=== PATIENT | female | born 1950 | race Caucasian/White ===

== ENCOUNTER 2019-06-20 09:44 | Inpatient (IN) ==
[2019-06-20] MEDS: 0.9 % Sodium Chloride 1,000 ML IVC SCH ×3 (10:21→18:51)
[2019-06-20] MEDS ORDERED: levoFLOXacin 750 MG/150 ML 750 MG/150 ML BAG IVPB ONE (10:41)
[2019-06-20] MEDS ORDERED: Piperacillin/Tazobactam 3.375 GM in Water for inj. (sterile) 20 ML IVP ONE (10:41)
[2019-06-20 10:43] LABS: Immature Granulocytes % 1.4 % (0-4); Lymphocytes % 5.7 %; Mean Corpuscular Hemoglobin 29.6 pg (28.0-33.3)
[2019-06-20 10:45] LABS: Basophils % 0.3 %; Eosinophils # 0.4 K/mcL (0.0-0.6); Eosinophils % 3.7 %; Hematocrit 48.4 % (35.3-44.9); Hemoglobin 15.3 g/dL (11.5-15.4); Immature Platelets 7.7 % (1.1-6.1); Lymphocytes # 0.7 K/mcL (0.6-4.6); Mean Corpuscular HGB Conc 31.6 g/dL (31.6-35.5); Mean Corpuscular Volume 93.6 fL (83.0-100.0); Monocytes # 0.6 K/mcL (0.0-1.3); Monocytes % 4.8 %; Neutrophils # 10.1 K/mcL (1.6-8.9); Nucleated Red Blood Cells 0.3 /100 WBC (0); Red Blood Count 5.17 M/mcL (3.82-4.97); Red Cell Distribution Width 18.6 % (11.5-14.5); Segmented Neutrophils % 84.1 %
[2019-06-20 10:51] LABS: INR 2.1; Prothrombin Time 23.8 Seconds (9.4-12.1)
[2019-06-20 10:54] LABS: Activated Partial Thrombo Time 44.4 Seconds (26.0-36.0)
[2019-06-20 11:11] LABS: Albumin 3.4 g/dL (3.5-5.7); Albumin/Globulin Ratio 1.4 (1.1-2.2); Bilirubin,Direct 2.5 mg/dL (0.0-0.2); Bilirubin,Indirect 1.2 mg/dL (0.0-1.2); Bilirubin,Total 3.7 mg/dL (0.3-1.0); Calcium 8.6 mg/dL (8.6-10.3); Globulin 2.4 g/dL (2.4-3.5); Magnesium 2.3 mg/dL (1.6-2.6); Phosphorous 6.1 mg/dL (2.7-4.5); Potassium 4.7 mEq/L (3.5-5.1); Total Protein 5.8 g/dL (6.4-8.9); Troponin I 0.53 ng/mL (< 0.04)
[2019-06-20 11:20] LABS: Platelet Count 54 K/mcL (140-400)
[2019-06-20 11:21] LABS: Platelet Estimate Decreased (Normal); Polychromasia 1+ (Not Present)
--- NOTE | 2019-06-20 11:26 | Emergency Department Note ---
Disposition Clinical Impression: ESRD (end stage renal disease) on dialysis, Elevated troponin, Thrombocytopenia [id number] kidney injury Qualifiers: Acute renal failure type: unspecified Chronic kidney disease stage: stage 5, not on chronic dialysis Qualified Code(s): N17.9 - Acute kidney failure, unspecified; N18.5 - Chronic kidney disease, stage 5 Anemia Qualifiers: Anemia type: unspecified type Qualified Code(s): D64.9 - Anemia, unspecified Diabetes mellitus Qualifiers: Diabetes mellitus type: type 2 Diabetes mellitus usp insulin use: unspecified usp insulin use status Diabetes mellitus complication status: with kidney complications Diabetes mellitus complication detail: with other kidney complication Qualified Code(s): E11.29 - Type 2 diabetes mellitus with other diabetic kidney complication Pneumonia Qualifiers: Pneumonia type: due to unspecified organism Laterality: left Lung location: upper lobe of lung Qualified Code(s): J18.1 - Lobar pneumonia, unspecified organism Disposition: Admitted As Inpatient Condition: Good Referrals: NONE,PCP [Primary Care Provider] - Forms: ED Satisfaction Letter Time of Disposition: 15:15 General Adult HPI - General Chief complaint: ED Weakness Stated complaint: weakness Time Seen by Provider: 06/20/19 09:50 Source: family, EMS Limitations: no limitations Nursing Notes Reviewed: Yes Vital Signs Reviewed: Yes - History of Present Illness HPI Narrative: Female Patient presenting to the emergency department by EMS with the daughter. Daughter states that she has been increasingly tired and weak over the past week. She does have a history of coronary artery disease a left [id number] amputation as well as end-stage renal disease that she is on dialysis for. She is a diabetic. Daughter states that she was being treated for pneumonia however she has taken the last dose of her antibiotics yesterday. She does report cough. States that she just not been eating and drinking very well. She also noted this morning whenever she got up to the patient's right foot was blue. Pain Scale: 0 - Related Data Home Medications Medication Instructions Recorded Confirmed Aspirin Enteric Coated [Aspirin EC] 81 mg PO DAILY 07/13/15 06/05/18 Clopidogrel [Plavix] 75 mg PO DAILY 07/13/15 06/05/18 Levothyroxine [Synthroid] 75 mcg PO QAM 07/13/15 06/05/18 Pentoxifylline [TRENtal] 400 mg PO BID 07/13/15 06/05/18 Tiotropium [Spiriva] 18 mcg IH DAILY 07/13/15 06/05/18 ALPRAZolam [Xanax 1 MG Tablet] 1 mg PO BID PRN 09/11/16 06/05/18 Atorvastatin Calcium [Lipitor] 20 mg PO HS 09/11/16 06/05/18 Docusate [Colace] 100 mg PO DAILY PRN 09/11/16 06/05/18 Gabapentin [Neurontin] 400 mg PO QPM 09/11/16 06/05/18 Gabapentin [Neurontin] 800 mg PO QAM 09/11/16 06/05/18 Sertraline [Zoloft] 100 mg PO DAILY 09/11/16 06/05/18 Sitagliptin Phos/Metformin HCl 1 each PO BID 09/11/16 06/05/18 [Janumet 50-1,000 mg Tablet] Previous Rx's Medication Instructions Recorded OxyCODONE/APAP 5/325 [Percocet 2 each PO Q6HR PRN #20 tablet 09/24/16 5/325 MG] Allergies Allergy/AdvReac Type Severity Reaction Status Date / Time gabapentin Allergy Seizure Verified 06/20/19 10:04 All systems ED: reviewed and negative except as stated. Review of Systems: As Per HPI Constitutional: Denies: fever, chills ENT ED: Reports: congestion Cardiovascular: Denies: syncope Respiratory: Reports: cough, dyspnea, sputum production Gastrointestinal: Denies: abdominal pain, nausea, vomiting, diarrhea Genitourinary: Reports: other (Patient does make urine.) Integumentary: Reports: other (Skin breakdown of the left buttocks). Denies: rash Past Medical History - Past Medical History Attestation: Yes The following information was validated with the patient. Source: patient Medical history: Reports: CHF, COPD, diabetes, myocardial infarction, renal disease, thyroid disease Surgical history: Reports: coronary bypass (CABG), orthopedic, other, vascular surgery (Status post left upper arm AV fistula) Psychiatric history: Reports: anxiety, depression [employer] history: Reports: non-contributory - Social History Smoking Status: Former smoker Smokeless Tobacco Status: No Alcohol use: Reports: none Drug use: Reports: none Physical Exam - General Limitations: no limitations General appearance: alert, other (Decreased mental status.) - Head Head exam: atraumatic, normocephalic, normal inspection - Eye Eye exam: Present: normal appearance, PERRL, EOMI - ENT ENT exam: normal exam, normal oropharynx, mucous membranes moist - Neck Neck exam: Present: normal inspection, full ROM, trachea midline - Chest Chest inspection: Present: normal inspection, symmetric chest wall rise - Respiratory Respiratory exam: Present: other (Coarse throughout.). Absent: respiratory distress, accessory muscle use - Cardiovascular Cardiovascular exam: Present: normal rhythm, tachycardia, normal heart sounds - Abdominal Exam Abdominal exam: Present: soft, Non-Tender. Absent: tenderness, distention, guarding, rebound, rigidity - Extremities Exam Extremities exam: Present: other (Right lower extremity blue from mid calf down. Cool to the touch. No palpable pulses. She does have a delayed capillary refill in her right thigh. They are edematous with pitting edema. Left lower extremity is amputated above the knee. ). Absent: tenderness - Neurological Exam Neurological exam: Present: alert, other (Confused. Does wake up to voice command.) - Skin Skin exam: Present: warm, dry, intact, normal color Course Course Narrative: Patient with increased cough and decreased mental status end-stage renal failure does do Saturday dialysis however has not had dialysis for the past Saturday or Saturday episode. Has had a decreased mental status. She is confused. Does arousable arouse to voice command weakly goes back to sleep. Has coarse lung sounds throughout. Pitting doughy edema to her right extremity with a blue foot. No pulses palpable. She is tachycardic. Chest x-ray is concerning for pneumonia of the left upper lobe. She does appear to be fluid overloaded however is mildly hypotensive. Family states that her blood pressure is very fluctuating. With a normal pressure for her is in the 70 systolic. - Reevaluation(s) Reevaluation #1: Currently cannot palpate a radial pulse. We will place a central line at this time and start the patient on vasopressors. I did discuss the risks and benefits of this with the daughter who is the power of corporate attorney and she expresses that she would like the patient to have a central line in the placed on vasopressors. We discussed that this could worsen her blood flow to her extremities and she is okay with that. She does however still states that she is DNR what appears to be Comfort Care rest. She does not wish to be intubated. She does not want CPR however she is requesting treatment a central line and IV vasopressors. Time: 13:00 - Consultations Consultation #1: I did speak to Dr Sharma. He recommended ABIs and Doppler of the patient's right lower extremity. We will order this at this time. He did not recommend anticoagulation at this time. Time: 11:45 Consultation #2: Dr sharma was made aware of the results of the ezra and doppler. He did recommend starting the patient on heparin at this time. We will start that. Time: 12:59 Vital Signs Temperature 98.9 F 06/20/19 09:58 Pulse Rate 121 06/20/19 09:58 Respiratory Rate 18 06/20/19 09:58 Blood Pressure 67/52 06/20/19 09:58 O2 Sat by Pulse Oximetry 92 06/20/19 09:58 Temperature 98.9 F 06/20/19 09:58 Pulse Rate 122 06/20/19 15:02 Respiratory Rate 18 06/20/19 15:02 Blood Pressure 72/51 06/20/19 15:02 O2 Sat by Pulse Oximetry 92 06/20/19 15:02 Oxygen Delivery Oxygen Delivery Nasal Cannula Procedures - Arterial Line Consent Obtained: verbal consent Time Out Performed: Yes Size (Gauge): 20 Technique Used: direct puncture technique Post-Procedure: line sutured into place, line taped into place, dry sterile dressing placed Patient Tolerated Procedure: well Complications: none Site: right - Central Line Placement Right IJ Central Line Inserted*: Yes Central Line Catheter Replacement*: Yes Central Line Insertion: emergent Consent Obtained: verbal consent, written consent Procedural Pause: verify patient name and date of , sunny and assess the site, assemble equipment and verify supplies, perform hand hygiene Patient Placed on Monitor/Pulse Ox: Yes During the Procedure: clinician is wearing sterile gloves, cap, mask,& gown during insertion, sterile field and sterile technique are maintained, patient's face is covered with drape or mask and wearing a cap, everyone in room is wearing a mask Central Line Prep: Chlorhexidine scrub Prep the Procedure Site: apply chloraprep to the skin using a back and forth scrubbing motion, apply chloraprep for 30 seconds (upper body), 1-2 min (femoral sites), allow prep to dry, drape the patient with a full body drape Local Anesthetic: lidocaine 1% Amount of anesthesia used (mL): 3 Ultrasound Used for Placement: Yes Central Line Lumen Inserted: triple Post Procedure: sutured in place, good blood return, all ports aspirated, fl ushed, capped, sterile dressing applied, guide wire removed and visualized, dressing is dated Post Procedure X-Ray: tip of catheter in good position, no pneumothorax seen Patient Tolerated Procedure: well Complications: none Name of Clinician Inserting Central Line: Chikis Lorenzo Clinician Assisting/Completing Checklist: Concepción Date: 06/20/19 Time: 14:40 Medical Decision Making - Medical Records Medical records reviewed: Yes I reviewed the patient's medical records. - Lab Data Lab results reviewed: Yes I reviewed the patient's lab results. Result diagrams: 06/20/19 10:31 06/20/19 10:31 Lab Results 06/20/19 06/20/19 06/20/19 Range/Units 10:31 10:31 10:31 WBC 12.0 H (4.3-11.1) K/mcL RBC 5.17 H (3.82-4.97) M/mcL Hgb 15.3 (11.5-15.4) g/dL Hct 48.4 H (35.3-44.9) % MCV 93.6 (83.0-100.0) fL MCH 29.6 (28.0-33.3) pg MCHC 31.6 (31.6-35.5) g/dL RDW 18.6 H (11.5-14.5) % Plt Count 54 L (140-400) K/mcL MPV 12.0 (9.4-12.4) fL Immature Gran % 1.4 (0-4) % Seg Neutrophils % 84.1 % Lymphocytes % 5.7 % Monocytes % 4.8 % Eosinophils % 3.7 % Basophils % 0.3 % Neutrophils # 10.1 H (1.6-8.9) K/mcL Lymphocytes # 0.7 (0.6-4.6) K/mcL Monocytes # 0.6 (0.0-1.3) K/mcL Eosinophils # 0.4 (0.0-0.6) K/mcL Basophils # 0.0 (0.0-0.2) K/mcL Nucleated RBCs/100 WBC 0.3 H (0) /100 WBC Platelet Estimate Decreased L (Normal) Immature Plt Fraction 7.7 H (1.1-6.1) % Polychromasia 1+ A (Not Present) PT 23.8 H (9.4-12.1) Seconds INR 2.1 APTT 44.4 H (26.0-36.0) Seconds Heparin Anti-Xa, Unfract (0.30-0.70) IU/mL Sodium 132 L (136-145) mEq/L Potassium 4.7 (3.5-5.1) mEq/L Chloride 92 L (98-107) mEq/L Carbon Dioxide 23 (23-29) mEq/L BUN 58 H (8-23) mg/dL Creatinine 6.63 H (0.60-1.20) mg/dL Est GFR ( Amer) 7 L (> 60) Est GFR (Non-Af Amer) 6 L (> 60) BUN/Creatinine Ratio 9 (6-26) Glucose 189 H (70-105) mg/dL Calculated Osmolality 295 (280-300) Lactic Acid (0.5-2.2) mmol/L Calcium 8.6 (8.6-10.3) mg/dL Phosphorus 6.1 H (2.7-4.5) mg/dL Magnesium 2.3 (1.6-2.6) mg/dL Total Bilirubin 3.7 H (0.3-1.0) mg/dL Direct Bilirubin 2.5 H (0.0-0.2) mg/dL Indirect Bilirubin 1.2 (0.0-1.2) mg/dL AST 136 H (13-39) Units/L ALT 114 H (7-52) Units/L Alkaline Phosphatase 115 H (34-104) Units/L Troponin I 0.53 H* (< 0.04) ng/mL Serum Total Protein 5.8 L (6.4-8.9) g/dL Albumin 3.4 L (3.5-5.7) g/dL Globulin 2.4 (2.4-3.5) g/dL Albumin/Globulin Ratio 1.4 (1.1-2.2) Urine Color (Yellow) Urine Clarity (Clear) Urine pH (5.0-8.0) pH Units Ur Specific [place] (1.010-1.025) Urine Protein (Neg-Trace) mg/dL Urine Glucose (UA) (Normal) mg/dL Urine Ketones (Negative) mg/dL Urine Blood (Negative) Urine Nitrite (Negative) Urine Bilirubin (Negative) Urine Urobilinogen (Normal) mg/dL Ur Leukocyte Esterase (Negative) Urine Microscopic RBC (0-3) per hpf Urine Microscopic WBC (0-3) per hpf Ur Squamous Epith Cells (None-Few) per lpf Urine Bacteria (None-Few) per hpf Ur Culture Indicated? (NO) Hep Bs Antigen (Nonreactive) Hep Bs Antibody (10.00 - ) mIU/mL 06/20/19 06/20/19 06/20/19 Range/Units 10:31 10:31 11:24 WBC (4.3-11.1) K/mcL RBC (3.82-4.97) M/mcL Hgb (11.5-15.4) g/dL Hct (35.3-44.9) % MCV (83.0-100.0) fL MCH (28.0-33.3) pg MCHC (31.6-35.5) g/dL RDW (11.5-14.5) % Plt Count (140-400) K/mcL MPV (9.4-12.4) fL Immature Gran % (0-4) % Seg Neutrophils % % Lymphocytes % % Monocytes % % Eosinophils % % Basophils % % Neutrophils # (1.6-8.9) K/mcL Lymphocytes # (0.6-4.6) K/mcL Monocytes # (0.0-1.3) K/mcL Eosinophils # (0.0-0.6) K/mcL Basophils # (0.0-0.2) K/mcL Nucleated RBCs/100 WBC (0) /100 WBC Platelet Estimate (Normal) Immature Plt Fraction (1.1-6.1) % Polychromasia (Not Present) PT (9.4-12.1) Seconds INR APTT (26.0-36.0) Seconds Heparin Anti-Xa, Unfract (0.30-0.70) IU/mL Sodium (136-145) mEq/L Potassium (3.5-5.1) mEq/L Chloride (98-107) mEq/L Carbon Dioxide (23-29) mEq/L BUN (8-23) mg/dL Creatinine (0.60-1.20) mg/dL Est GFR ( Amer) (> 60) Est GFR (Non-Af Amer) (> 60) BUN/Creatinine Ratio (6-26) Glucose (70-105) mg/dL Calculated Osmolality (280-300) Lactic Acid 1.9 (0.5-2.2) mmol/L Calcium (8.6-10.3) mg/dL Phosphorus (2.7-4.5) mg/dL Magnesium (1.6-2.6) mg/dL Total Bilirubin (0.3-1.0) mg/dL Direct Bilirubin (0.0-0.2) mg/dL Indirect Bilirubin (0.0-1.2) mg/dL AST (13-39) Units/L ALT (7-52) Units/L Alkaline Phosphatase (34-104) Units/L Troponin I (< 0.04) ng/mL Serum Total Protein (6.4-8.9) g/dL Albumin (3.5-5.7) g/dL Globulin (2.4-3.5) g/dL Albumin/Globulin Ratio (1.1-2.2) Urine Color Dark Yellow (Yellow) Urine Clarity Turbid A (Clear) Urine pH 5.0 (5.0-8.0) pH Units Ur Specific [place] 1.015 (1.010-1.025) Urine Protein 30 H (Neg-Trace) mg/dL Urine Glucose (UA) Normal (Normal) mg/dL Urine Ketones Trace H (Negative) mg/dL Urine Blood Large H (Negative) Urine Nitrite Negative (Negative) Urine Bilirubin Moderate H (Negative) Urine Urobilinogen Normal (Normal) mg/dL Ur Leukocyte Esterase Large H (Negative) Urine Microscopic RBC TNTC H (0-3) per hpf Urine Microscopic WBC TNTC H (0-3) per hpf Ur Squamous Epith Cells Many H (None-Few) per lpf Urine Bacteria Many H (None-Few) per hpf Ur Culture Indicated? YES A (NO) Hep Bs Antigen Nonreactive (Nonreactive) Hep Bs Antibody < 3.10 L (10.00 - ) mIU/mL 06/20/19 Range/Units 14:19 WBC (4.3-11.1) K/mcL RBC (3.82-4.97) M/mcL Hgb (11.5-15.4) g/dL Hct (35.3-44.9) % MCV (83.0-100.0) fL MCH (28.0-33.3) pg MCHC (31.6-35.5) g/dL RDW (11.5-14.5) % Plt Count (140-400) K/mcL MPV (9.4-12.4) fL Immature Gran % (0-4) % Seg Neutrophils % % Lymphocytes % % Monocytes % % Eosinophils % % Basophils % % Neutrophils # (1.6-8.9) K/mcL Lymphocytes # (0.6-4.6) K/mcL Monocytes # (0.0-1.3) K/mcL Eosinophils # (0.0-0.6) K/mcL Basophils # (0.0-0.2) K/mcL Nucleated RBCs/100 WBC (0) /100 WBC Platelet Estimate (Normal) Immature Plt Fraction (1.1-6.1) % Polychromasia (Not Present) PT (9.4-12.1) Seconds INR APTT (26.0-36.0) Seconds Heparin Anti-Xa, Unfract 0.00 L (0.30-0.70) IU/mL Sodium (136-145) mEq/L Potassium (3.5-5.1) mEq/L Chloride (98-107) mEq/L Carbon Dioxide (23-29) mEq/L BUN (8-23) mg/dL Creatinine (0.60-1.20) mg/dL Est GFR ( Amer) (> 60) Est GFR (Non-Af Amer) (> 60) BUN/Creatinine Ratio (6-26) Glucose (70-105) mg/dL Calculated Osmolality (280-300) Lactic Acid (0.5-2.2) mmol/L Calcium (8.6-10.3) mg/dL Phosphorus (2.7-4.5) mg/dL Magnesium (1.6-2.6) mg/dL Total Bilirubin (0.3-1.0) mg/dL Direct Bilirubin (0.0-0.2) mg/dL Indirect Bilirubin (0.0-1.2) mg/dL AST (13-39) Units/L ALT (7-52) Units/L Alkaline Phosphatase (34-104) Units/L Troponin I (< 0.04) ng/mL Serum Total Protein (6.4-8.9) g/dL Albumin (3.5-5.7) g/dL Globulin (2.4-3.5) g/dL Albumin/Globulin Ratio (1.1-2.2) Urine Color (Yellow) Urine Clarity (Clear) Urine pH (5.0-8.0) pH Units Ur Specific [place] (1.010-1.025) Urine Protein (Neg-Trace) mg/dL Urine Glucose (UA) (Normal) mg/dL Urine Ketones (Negative) mg/dL Urine Blood (Negative) Urine Nitrite (Negative) Urine Bilirubin (Negative) Urine Urobilinogen (Normal) mg/dL Ur Leukocyte Esterase (Negative) Urine Microscopic RBC (0-3) per hpf Urine Microscopic WBC (0-3) per hpf Ur Squamous Epith Cells (None-Few) per lpf Urine Bacteria (None-Few) per hpf Ur Culture Indicated? (NO) Hep Bs Antigen (Nonreactive) Hep Bs Antibody (10.00 - ) mIU/mL - Radiology Data Radiology results reviewed: Yes I reviewed the patient's radiology results. Chest X-Ray 06/20/19 10:07 IMPRESSION: 1. Worsening consolidation left upper lobe. An underlying mass in the left suprahilar region cannot be excluded. Recommend dedicated CT with contrast. 2. There is also worsening pleural effusions with mild interstitial edema suggestive of underlying congestive heart failure. D/ / Lor Mckoy MD / Lor Mckoy MD Interpreting Provider: Lor Mckoy MD - EKG Data EKG #1 EKG attestation: Yes I reviewed and interpreted this EKG. EKG results narrative: Sinus tachycardia at a rate of 122. MD interval is 88. QRS duration is 117. QT is 319. QTC is 455. No signs of acute ischemia. She does have some ST depression and T-wave inversion in lead V4 V5 and V6. Is also T-wave inversion in lead 1 and 2. These were all present on previous EKG dated 02/27/2019.
--- NOTE | 2019-06-20 11:27 | Emergency Department Note ---
Disposition Clinical Impression: ESRD (end stage renal disease) on dialysis, Elevated troponin, Thrombocytopenia [id number] kidney injury Qualifiers: Acute renal failure type: unspecified Chronic kidney disease stage: on chronic dialysis Qualified Code(s): N17.9 - Acute kidney failure, unspecified Anemia Qualifiers: Anemia type: unspecified type Qualified Code(s): D64.9 - Anemia, unspecified Diabetes mellitus Qualifiers: Diabetes mellitus type: type 2 Diabetes mellitus termite control service representative insulin use: with termite control service representative use Diabetes mellitus complication status: with kidney complications Diabetes mellitus complication detail: with chronic kidney disease Chronic kidney disease stage: on chronic dialysis Qualified Code(s): E11.22 - Type 2 diabetes mellitus with diabetic chronic kidney disease Pneumonia Qualifiers: Pneumonia type: due to unspecified organism Laterality: left Lung location: upper lobe of lung Qualified Code(s): J18.1 - Lobar pneumonia, unspecified organism Disposition: Admitted As Inpatient Condition: Good Time of Disposition: 19:48 General Adult HPI - General Chief complaint: ED Weakness Stated complaint: weakness Time Seen by Provider: 06/20/19 09:50 Source: family, EMS Limitations: no limitations Nursing Notes Reviewed: Yes Vital Signs Reviewed: Yes - History of Present Illness Pain Scale: 0 - Related Data Home Medications Medication Instructions Recorded Confirmed Aspirin Enteric Coated [Aspirin EC] 81 mg PO DAILY 07/13/15 06/05/18 Clopidogrel [Plavix] 75 mg PO DAILY 07/13/15 06/05/18 Levothyroxine [Synthroid] 75 mcg PO QAM 07/13/15 06/05/18 Pentoxifylline [TRENtal] 400 mg PO BID 07/13/15 06/05/18 Tiotropium [Spiriva] 18 mcg IH DAILY 07/13/15 06/05/18 ALPRAZolam [Xanax 1 MG Tablet] 1 mg PO BID PRN 09/11/16 06/05/18 Atorvastatin Calcium [Lipitor] 20 mg PO HS 09/11/16 06/05/18 Docusate [Colace] 100 mg PO DAILY PRN 09/11/16 06/05/18 Gabapentin [Neurontin] 400 mg PO QPM 09/11/16 06/05/18 Gabapentin [Neurontin] 800 mg PO QAM 09/11/16 06/05/18 Sertraline [Zoloft] 100 mg PO DAILY 09/11/16 06/05/18 Sitagliptin Phos/Metformin HCl 1 each PO BID 09/11/16 06/05/18 [Janumet 50-1,000 mg Tablet] Previous Rx's Medication Instructions Recorded OxyCODONE/APAP 5/325 [Percocet 2 each PO Q6HR PRN #20 tablet 09/24/16 5/325 MG] Allergies Allergy/AdvReac Type Severity Reaction Status Date / Time gabapentin Allergy Seizure Verified 06/20/19 10:04 Past Medical History - Past Medical History Medical history: Reports: CHF, COPD, diabetes, myocardial infarction, renal disease, thyroid disease Surgical history: Reports: coronary bypass (CABG), orthopedic, other, vascular surgery (Status post left upper arm AV fistula) Psychiatric history: Reports: anxiety, depression 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 - Social History Smoking Status: Former smoker Smokeless Tobacco Status: No Alcohol use: Reports: none Drug use: Reports: none Physical Exam - General Limitations: no limitations General appearance: alert Course Vital Signs Temperature 98.9 F 06/20/19 09:58 Pulse Rate 121 06/20/19 09:58 Respiratory Rate 18 06/20/19 09:58 Blood Pressure 67/52 06/20/19 09:58 O2 Sat by Pulse Oximetry 92 06/20/19 09:58 Temperature 97.7 F 06/20/19 19:00 Pulse Rate 136 06/20/19 19:00 Respiratory Rate 24 06/20/19 19:00 Blood Pressure 75/61 06/20/19 19:00 O2 Sat by Pulse Oximetry 89 06/20/19 19:00 Oxygen Delivery Oxygen Delivery Nasal Cannula Medical Decision Making - [facility] Narrative Medical decision making narrative: Chest X-Ray 06/20/19 10:07 IMPRESSION: 1. Worsening consolidation left upper lobe. An underlying mass in the left suprahilar region cannot be excluded. Recommend dedicated CT with contrast. 2. There is also worsening pleural effusions with mild interstitial edema suggestive of underlying congestive heart failure. D/ / Lor Mckoy MD / Lor Mkcoy MD Interpreting Provider: Lor Mckoy MD 1130 hrs.: Spoke with vascular they want a vascular ultrasound on the right leg. We started her on fluids but she is fluid overloaded's I do not want to give her the full amount for sepsis protocol. Her blood pressure according to family is always somewhere around 70 and she runs anywhere from 60-68 here systolic. Anabolic since been started. Waiting on study of her right lower extremity and speak with vascular she will need admission. Reviewed patient's chest x-ray from back in February and she still had the suspicious area on her chest x-ray in the left suprahilar region. I do not know that a CT is been done I have not seen that yet so that will probably be need to be done in the hospital. 1210 hrs.: fork lift technician his reviewed the ultrasound they could not find any arterial pulsations throughout the leg. No signs of DVT on this limited study. Spoke with vascular patient is not having any pain in the area and so no surgery is planned. No heparin at this time. Patient's case was discussed with hospitalist. For admission. Family states patient is a DNR CC they are okay with her receiving treatment but no heroic treatments, no intubation, no CPR and they prefer no surgery at this time. 1420 hrs.: Hospitalist requested a central line and art line, family agrees to the management. I reviewed the residents documentation and agree with the residents assessment and plan of care. I have personally had face to face time with the patient. (Brief History, Brief Exam, and MDM) I personally supervised and was present for the desouza/critical portions of the following procedures completed by the resident: Central line was placed under ultrasound by Dr. Lorenzo under my supervision. Line is been visually imaged with x-ray and is ready for use. . I reviewed the residents documentation and agree with the residents assessment and plan of care. I have personally had face to face time with the patient. (Brief History, Brief Exam, and MDM) I personally supervised and was present for the desouza/critical portions of the following procedures completed by the resident: Arterial line was placed in her right radial artery by Dr. Hyman under my supervision. This was done to request hospitalist due to hypertension. Successful placement was done. - Lab Data Result diagrams: 06/20/19 10:31 06/20/19 10:31 Lab Results 06/20/19 06/20/19 06/20/19 Range/Units 09:50 10:31 10:31 WBC 12.0 H (4.3-11.1) K/mcL RBC 5.17 H (3.82-4.97) M/mcL Hgb 15.3 (11.5-15.4) g/dL Hct 48.4 H (35.3-44.9) % MCV 93.6 (83.0-100.0) fL MCH 29.6 (28.0-33.3) pg MCHC 31.6 (31.6-35.5) g/dL RDW 18.6 H (11.5-14.5) % Plt Count 54 L (140-400) K/mcL MPV 12.0 (9.4-12.4) fL Immature Gran % 1.4 (0-4) % Seg Neutrophils % 84.1 % Lymphocytes % 5.7 % Monocytes % 4.8 % Eosinophils % 3.7 % Basophils % 0.3 % Neutrophils # 10.1 H (1.6-8.9) K/mcL Lymphocytes # 0.7 (0.6-4.6) K/mcL Monocytes # 0.6 (0.0-1.3) K/mcL Eosinophils # 0.4 (0.0-0.6) K/mcL Basophils # 0.0 (0.0-0.2) K/mcL Nucleated RBCs/100 WBC 0.3 H (0) /100 WBC Platelet Estimate Decreased L (Normal) Immature Plt Fraction 7.7 H (1.1-6.1) % Polychromasia 1+ A (Not Present) PT 23.8 H (9.4-12.1) Seconds INR 2.1 APTT 44.4 H (26.0-36.0) Seconds Heparin Anti-Xa, Unfract (0.30-0.70) IU/mL Sodium (136-145) mEq/L Potassium (3.5-5.1) mEq/L Chloride (98-107) mEq/L Carbon Dioxide (23-29) mEq/L BUN (8-23) mg/dL Creatinine (0.60-1.20) mg/dL Est GFR ( Amer) (> 60) Est GFR (Non-Af Amer) (> 60) BUN/Creatinine Ratio (6-26) Glucose (70-105) mg/dL POC Glucose 142 H (70-99) mg/dL Calculated Osmolality (280-300) Lactic Acid (0.5-2.2) mmol/L Calcium (8.6-10.3) mg/dL Phosphorus (2.7-4.5) mg/dL Magnesium (1.6-2.6) mg/dL Total Bilirubin (0.3-1.0) mg/dL Direct Bilirubin (0.0-0.2) mg/dL Indirect Bilirubin (0.0-1.2) mg/dL AST (13-39) Units/L ALT (7-52) Units/L Alkaline Phosphatase (34-104) Units/L Troponin I (< 0.04) ng/mL Serum Total Protein (6.4-8.9) g/dL Albumin (3.5-5.7) g/dL Globulin (2.4-3.5) g/dL Albumin/Globulin Ratio (1.1-2.2) Urine Color (Yellow) Urine Clarity (Clear) Urine pH (5.0-8.0) pH Units Ur Specific Clune (1.010-1.025) Urine Protein (Neg-Trace) mg/dL Urine Glucose (UA) (Normal) mg/dL Urine Ketones (Negative) mg/dL Urine Blood (Negative) Urine Nitrite (Negative) Urine Bilirubin (Negative) Urine Urobilinogen (Normal) mg/dL Ur Leukocyte Esterase (Negative) Urine Microscopic RBC (0-3) per hpf Urine Microscopic WBC (0-3) per hpf Ur Squamous Epith Cells (None-Few) per lpf Urine Bacteria (None-Few) per hpf Ur Culture Indicated? (NO) Hep Bs Antigen (Nonreactive) Hep Bs Antibody (10.00 - ) mIU/mL Specimen Rejected 06/20/19 06/20/19 06/20/19 Range/Units 10:31 10:31 10:31 WBC (4.3-11.1) K/mcL RBC (3.82-4.97) M/mcL Hgb (11.5-15.4) g/dL Hct (35.3-44.9) % MCV (83.0-100.0) fL MCH (28.0-33.3) pg MCHC (31.6-35.5) g/dL RDW (11.5-14.5) % Plt Count (140-400) K/mcL MPV (9.4-12.4) fL Immature Gran % (0-4) % Seg Neutrophils % % Lymphocytes % % Monocytes % % Eosinophils % % Basophils % % Neutrophils # (1.6-8.9) K/mcL Lymphocytes # (0.6-4.6) K/mcL Monocytes # (0.0-1.3) K/mcL Eosinophils # (0.0-0.6) K/mcL Basophils # (0.0-0.2) K/mcL Nucleated RBCs/100 WBC (0) /100 WBC Platelet Estimate (Normal) Immature Plt Fraction (1.1-6.1) % Polychromasia (Not Present) PT (9.4-12.1) Seconds INR APTT (26.0-36.0) Seconds Heparin Anti-Xa, Unfract (0.30-0.70) IU/mL Sodium 132 L (136-145) mEq/L Potassium 4.7 (3.5-5.1) mEq/L Chloride 92 L (98-107) mEq/L Carbon Dioxide 23 (23-29) mEq/L BUN 58 H (8-23) mg/dL Creatinine 6.63 H (0.60-1.20) mg/dL Est GFR ( Amer) 7 L (> 60) Est GFR (Non-Af Amer) 6 L (> 60) BUN/Creatinine Ratio 9 (6-26) Glucose 189 H (70-105) mg/dL POC Glucose (70-99) mg/dL Calculated Osmolality 295 (280-300) Lactic Acid 1.9 (0.5-2.2) mmol/L Calcium 8.6 (8.6-10.3) mg/dL Phosphorus 6.1 H (2.7-4.5) mg/dL Magnesium 2.3 (1.6-2.6) mg/dL Total Bilirubin 3.7 H (0.3-1.0) mg/dL Direct Bilirubin 2.5 H (0.0-0.2) mg/dL Indirect Bilirubin 1.2 (0.0-1.2) mg/dL AST 136 H (13-39) Units/L ALT 114 H (7-52) Units/L Alkaline Phosphatase 115 H (34-104) Units/L Troponin I 0.53 H* (< 0.04) ng/mL Serum Total Protein 5.8 L (6.4-8.9) g/dL Albumin 3.4 L (3.5-5.7) g/dL Globulin 2.4 (2.4-3.5) g/dL Albumin/Globulin Ratio 1.4 (1.1-2.2) Urine Color (Yellow) Urine Clarity (Clear) Urine pH (5.0-8.0) pH Units Ur Specific Clune (1.010-1.025) Urine Protein (Neg-Trace) mg/dL Urine Glucose (UA) (Normal) mg/dL Urine Ketones (Negative) mg/dL Urine Blood (Negative) Urine Nitrite (Negative) Urine Bilirubin (Negative) Urine Urobilinogen (Normal) mg/dL Ur Leukocyte Esterase (Negative) Urine Microscopic RBC (0-3) per hpf Urine Microscopic WBC (0-3) per hpf Ur Squamous Epith Cells (None-Few) per lpf Urine Bacteria (None-Few) per hpf Ur Culture Indicated? (NO) Hep Bs Antigen Nonreactive (Nonreactive) Hep Bs Antibody < 3.10 L (10.00 - ) mIU/mL Specimen Rejected 06/20/19 06/20/19 06/20/19 Range/Units 11:24 14:19 15:20 WBC (4.3-11.1) K/mcL RBC (3.82-4.97) M/mcL Hgb (11.5-15.4) g/dL Hct (35.3-44.9) % MCV (83.0-100.0) fL MCH (28.0-33.3) pg MCHC (31.6-35.5) g/dL RDW (11.5-14.5) % Plt Count (140-400) K/mcL MPV (9.4-12.4) fL Immature Gran % (0-4) % Seg Neutrophils % % Lymphocytes % % Monocytes % % Eosinophils % % Basophils % % Neutrophils # (1.6-8.9) K/mcL Lymphocytes # (0.6-4.6) K/mcL Monocytes # (0.0-1.3) K/mcL Eosinophils # (0.0-0.6) K/mcL Basophils # (0.0-0.2) K/mcL Nucleated RBCs/100 WBC (0) /100 WBC Platelet Estimate (Normal) Immature Plt Fraction (1.1-6.1) % Polychromasia (Not Present) PT (9.4-12.1) Seconds INR APTT (26.0-36.0) Seconds Heparin Anti-Xa, Unfract 0.00 L (0.30-0.70) IU/mL Sodium (136-145) mEq/L Potassium (3.5-5.1) mEq/L Chloride (98-107) mEq/L Carbon Dioxide (23-29) mEq/L BUN (8-23) mg/dL Creatinine (0.60-1.20) mg/dL Est GFR ( Amer) (> 60) Est GFR (Non-Af Amer) (> 60) BUN/Creatinine Ratio (6-26) Glucose (70-105) mg/dL POC Glucose (70-99) mg/dL Calculated Osmolality (280-300) Lactic Acid (0.5-2.2) mmol/L Calcium (8.6-10.3) mg/dL Phosphorus (2.7-4.5) mg/dL Magnesium (1.6-2.6) mg/dL Total Bilirubin (0.3-1.0) mg/dL Direct Bilirubin (0.0-0.2) mg/dL Indirect Bilirubin (0.0-1.2) mg/dL AST (13-39) Units/L ALT (7-52) Units/L Alkaline Phosphatase (34-104) Units/L Troponin I 0.58 H* (< 0.04) ng/mL Serum Total Protein (6.4-8.9) g/dL Albumin (3.5-5.7) g/dL Globulin (2.4-3.5) g/dL Albumin/Globulin Ratio (1.1-2.2) Urine Color Dark Yellow (Yellow) Urine Clarity Turbid A (Clear) Urine pH 5.0 (5.0-8.0) pH Units Ur Specific Clune 1.015 (1.010-1.025) Urine Protein 30 H (Neg-Trace) mg/dL Urine Glucose (UA) Normal (Normal) mg/dL Urine Ketones Trace H (Negative) mg/dL Urine Blood Large H (Negative) Urine Nitrite Negative (Negative) Urine Bilirubin Moderate H (Negative) Urine Urobilinogen Normal (Normal) mg/dL Ur Leukocyte Esterase Large H (Negative) Urine Microscopic RBC TNTC H (0-3) per hpf Urine Microscopic WBC TNTC H (0-3) per hpf Ur Squamous Epith Cells Many H (None-Few) per lpf Urine Bacteria Many H (None-Few) per hpf Ur Culture Indicated? YES A (NO) Hep Bs Antigen (Nonreactive) Hep Bs Antibody (10.00 - ) mIU/mL Specimen Rejected 06/20/19 Range/Units 15:38 WBC (4.3-11.1) K/mcL RBC (3.82-4.97) M/mcL Hgb (11.5-15.4) g/dL Hct (35.3-44.9) % MCV (83.0-100.0) fL MCH (28.0-33.3) pg MCHC (31.6-35.5) g/dL RDW (11.5-14.5) % Plt Count (140-400) K/mcL MPV (9.4-12.4) fL Immature Gran % (0-4) % Seg Neutrophils % % Lymphocytes % % Monocytes % % Eosinophils % % Basophils % % Neutrophils # (1.6-8.9) K/mcL Lymphocytes # (0.6-4.6) K/mcL Monocytes # (0.0-1.3) K/mcL Eosinophils # (0.0-0.6) K/mcL Basophils # (0.0-0.2) K/mcL Nucleated RBCs/100 WBC (0) /100 WBC Platelet Estimate (Normal) Immature Plt Fraction (1.1-6.1) % Polychromasia (Not Present) PT (9.4-12.1) Seconds INR APTT (26.0-36.0) Seconds Heparin Anti-Xa, Unfract (0.30-0.70) IU/mL Sodium (136-145) mEq/L Potassium (3.5-5.1) mEq/L Chloride (98-107) mEq/L Carbon Dioxide (23-29) mEq/L BUN (8-23) mg/dL Creatinine (0.60-1.20) mg/dL Est GFR ( Amer) (> 60) Est GFR (Non-Af Amer) (> 60) BUN/Creatinine Ratio (6-26) Glucose (70-105) mg/dL POC Glucose (70-99) mg/dL Calculated Osmolality (280-300) Lactic Acid (0.5-2.2) mmol/L Calcium (8.6-10.3) mg/dL Phosphorus (2.7-4.5) mg/dL Magnesium (1.6-2.6) mg/dL Total Bilirubin (0.3-1.0) mg/dL Direct Bilirubin (0.0-0.2) mg/dL Indirect Bilirubin (0.0-1.2) mg/dL AST (13-39) Units/L ALT (7-52) Units/L Alkaline Phosphatase (34-104) Units/L Troponin I (< 0.04) ng/mL Serum Total Protein (6.4-8.9) g/dL Albumin (3.5-5.7) g/dL Globulin (2.4-3.5) g/dL Albumin/Globulin Ratio (1.1-2.2) Urine Color (Yellow) Urine Clarity (Clear) Urine pH (5.0-8.0) pH Units Ur Specific Clune (1.010-1.025) Urine Protein (Neg-Trace) mg/dL Urine Glucose (UA) (Normal) mg/dL Urine Ketones (Negative) mg/dL Urine Blood (Negative) Urine Nitrite (Negative) Urine Bilirubin (Negative) Urine Urobilinogen (Normal) mg/dL Ur Leukocyte Esterase (Negative) Urine Microscopic RBC (0-3) per hpf Urine Microscopic WBC (0-3) per hpf Ur Squamous Epith Cells (None-Few) per lpf Urine Bacteria (None-Few) per hpf Ur Culture Indicated? (NO) Hep Bs Antigen (Nonreactive) Hep Bs Antibody (10.00 - ) mIU/mL Specimen Rejected Hemolyzed Attestation Statement - Attestation Attestation: This documentation is done with the assistance of Dragon dictation. Despite efforts made to ensure accuracy, there may be inaccuracies in media marketing director or spelling and typographical errors. I examined this patient and my medical decision-making was reviewed with the Resident Physician. I agree with the documented findings, disposition and treatment plan as described except to the extent set forth below. Patient was seen and evaluated by Dr. Lorenzo, I agree with their evaluation and management plan, I supervised care the patient's stay. Patient presents today from home by EMS. Patient is supposed be doing dialysis but has missed dialysis since Kevin. Daughter states she has not been eating or drinking well, says she has been too weak to go to dialysis. She also has noticed that her right foot is been getting, dusky and purple looking. It is also cold. Patient does not really have any complaints except she says she does not feel well. Patient does have more sedation, but will awaken talk to here. We will order a workup including vascular and septic. I reviewed the residents documentation and agree with the residents assessment and plan of care. I have personally had face to face time with the patient. (Brief History, Brief Exam, and MDM) I personally supervised and was present for the desouza/critical portions of the following procedures completed by the resident: EKG was interpreted by the resident under my supervision, I agree with their interpretation.
[2019-06-20 11:38] LABS: Bilirubin,Urine Moderate (Negative); Blood,Urine Large (Negative); Clarity,Urine Turbid (Clear); Color,Urine Dark Yellow (Yellow); Glucose,Urine (UA) Normal (Normal); Ketones,Urine Trace mg/dL (Negative); Leukocyte Esterase,Urine Large (Negative); Nitrite,Urine Negative (Negative); Protein,Urine 30 mg/dL (Neg-Trace); Specific Gravity,Urine 1.015 (1.010-1.025); Urobilinogen,Urine Normal (Normal)
[2019-06-20 11:40] LABS: Bacteria,Urine Many per hpf (None-Few); Squamous Epithelial Cell,Urine Many per lpf (None-Few); WBC,Urine TNTC per hpf (0-3)
[2019-06-20 11:49] LABS: RBC,Urine TNTC per hpf (0-3)
[2019-06-20 12:11] LABS: Hepatitis B Surface Antibody < 3.10 mIU/mL
[2019-06-20 12:22] LABS: Hepatitis B Surface Antigen Nonreactive (Nonreactive)
[2019-06-20] MEDS ORDERED: 0.9 % Sodium Chloride 1,000 ML ONE (12:57)
[2019-06-20] MEDS ORDERED: Albumin 25% 25gram/100mL 25 GM/100 ML IV.SOLN IVPB PRN (13:34)
[2019-06-20] MEDS ORDERED: 0.9 % Sodium Chloride 250 ML IVC PRN (13:34)
[2019-06-20] MEDS ORDERED: *HR* Heparin 5,000 UNIT/ML VIAL IVP ONE (13:36)
[2019-06-20] MEDS ORDERED: *HR* Heparin 5,000 UNIT/ML VIAL IVP PRN (13:36)
[2019-06-20] MEDS ORDERED: 0.9 % Sodium Chloride 1,000 ML PRIME SCH (13:45)
[2019-06-20] MEDS ORDERED: *HR* HYDROcodone/Acet 5/325 mg TABLET PO PRN (14:54)
[2019-06-20] MEDS ORDERED: Naloxone 0.4 MG/ML INJ IVP PRN (14:54)
[2019-06-20] MEDS: Norepinephrine 4 MG in D5% in Water 250 ML IVC SCH ×2 (14:54→20:30)
[2019-06-20] MEDS: Heparin 25,000 UNIT/250 ML D5W 25,000 UNIT/250 ML IV.SOLN IVC SCH (15:09)
--- NOTE | 2019-06-20 15:24 | Internal Med History&Physical ---
Date of Encounter: 06/20/19 Time of Encounter: 15:22 Internal Medicine - H&P: HPI Chief complaint: Feeling weak Admitted From: Home Plans for Post Hospital Care: Transfer Direct Sales Consultant Care History of present illness: Ms. Reed is a 69 year old female with past medical history significant for end-stage renal disease on dialysis, hypertension, diabetes, congestive heart failure, myocardial infarction status post coronary artery bypass graft in 2018, hyperlipidemia, coronary artery disease, and COPD, presents to the emergency department with complaint of feeling weak for past 3 days. Patient reports that went to her dialysis center on Saturday. After that she was having weak for posterior disease. The patient's daughter, patient appears to be mild confusion. Patient did not go to her dialysis on Saturday and Saturday. Patient reports that she has been getting increasingly tired and fatigued for about 3 days. Patient also reports she had issue with circulation in her extremity. Patient had left-sided below-knee amputation done for peripheral arterial disease. Patient's daughter informed that she noticed that her right foot was getting discolored for past couple days. This morning patient's daughter saw that her right foot turn purple that time patient brought to the ER by the patient's daughter. Denies any pain in her right foot. Patient reports cough. Pt reports that she was admitted here 2 months back and was diagnosed with pneumonia. Patient reports of cough. Patient denies any chest pain. Patient denies any palpitation. Upon presentation to urgent care on initial blood work patient had a leukocytosis. Patient has had thrombocytopenia. Patient had hyponatremia and Cr of 6. Pt had elevated troponin. Past Med Surg Social Fam HX - Past Medical History Medical history: CHF, COPD, coronary artery disease, diabetes, hyperlipidemia, myocardial infarction, peripheral artery disease, renal disease, thyroid disease Additional medical history: Leg and foot surgery, amputation Left leg, MRSA on chest, Psychiatric history: anxiety, depression - Past Surgical History Surgical History: coronary bypass (CABG), orthopedic, other, vascular surgery (Status post left upper arm AV fistula) Additional surgical history: left AKA, right toe amputation - Social History Smoking Status: Former smoker Smokeless Tobacco Status: No Alcohol use: none Drug use: none - Family History Father Living Status: Hx Family Cancer: Yes (prostate, colon) Mother Adopted: No Hx Family Endocrine Disorder: Yes (Diabetes) Brother Hx Family Endocrine Disorder: Yes (Diabetes) Daughter Hx Family Neurologic Disorders: Yes (Aneurysm) Internal Medicine - H&P: Meds Aspirin Enteric Coated [Aspirin EC] 81 mg PO DAILY 07/13/15 [History] Clopidogrel [Plavix] 75 mg PO DAILY 07/13/15 [History] Levothyroxine [Synthroid] 75 mcg PO QAM 07/13/15 [History] Pentoxifylline [TRENtal] 400 mg PO BID 07/13/15 [History] Tiotropium [Spiriva] 18 mcg IH DAILY 07/13/15 [History] ALPRAZolam [Xanax 1 MG Tablet] 1 mg PO BID PRN 09/11/16 [History] Atorvastatin Calcium [Lipitor] 20 mg PO HS 09/11/16 [History] Docusate [Colace] 100 mg PO DAILY PRN 09/11/16 [History] Gabapentin [Neurontin] 400 mg PO QPM 09/11/16 [History] Gabapentin [Neurontin] 800 mg PO QAM 09/11/16 [History] Sertraline [Zoloft] 100 mg PO DAILY 09/11/16 [History] Sitagliptin Phos/Metformin HCl [Janumet 50-1,000 mg Tablet] 1 each PO BID 09/11/16 [History] OxyCODONE/APAP 5/325 [Percocet 5/325 MG] 2 each PO Q6HR PRN #20 tablet 09/24/16 [Rx] Allergy/AdvReac Type Severity Reaction Status Date / Time gabapentin Allergy Seizure Verified 06/20/19 10:04 All Systems PM: A 10-system review of systems was performed and is negative for pertinent findings except as documented above in the HPI. - Constitutional Vitals: Temp Pulse Resp BP Pulse Ox 98.9 F 122 18 72/51 92 06/20/19 09:58 06/20/19 15:02 06/20/19 15:02 06/20/19 15:02 06/20/19 15:02 General appearance: Present: cooperative, A&O X 3 Exam: General: A & O 3, In no acute distress HENNT: PERRLA. Head atraumatic and makes supple CVS S1 and S2 regular, no murmur RS: Coarse breath sound bilaterally. Left-sided rhonchi. Abdomen: Soft and nontender. Bowel sounds normal 4 Extremities: above-knee amputation on the left extremity. Right foot - on inspection appear purple. edematous, no tenderness. Pulses are not palpable Neurology: Alert and oriented.. Does wake up to command. Internal Med - H&P Results - Labs CBC & Chem 7: 06/20/19 10:31 06/20/19 10:31 Labs: Short CBC 06/20/19 Range/Units 10:31 WBC 12.0 H (4.3-11.1) K/mcL Hgb 15.3 (11.5-15.4) g/dL Hct 48.4 H (35.3-44.9) % Plt Count 54 L (140-400) K/mcL Neutrophils # 10.1 H (1.6-8.9) K/mcL BMP 06/20/19 10:31 Sodium 132 L Potassium 4.7 Chloride 92 L Carbon Dioxide 23 BUN 58 H Creatinine 6.63 H Glucose 189 H Calcium 8.6 Cardiac Enzymes 06/20/19 Range/Units 10:31 Troponin I 0.53 H* (< 0.04) ng/mL Liver Function 06/20/19 Range/Units 10:31 Total Bilirubin 3.7 H (0.3-1.0) mg/dL Direct Bilirubin 2.5 H (0.0-0.2) mg/dL AST 136 H (13-39) Units/L ALT 114 H (7-52) Units/L Alkaline Phosphatase 115 H (34-104) Units/L Albumin 3.4 L (3.5-5.7) g/dL Urine 06/20/19 Range/Units 11:24 Urine Color Dark Yellow (Yellow) Urine Clarity Turbid A (Clear) Urine pH 5.0 (5.0-8.0) pH Units Ur Specific [place] 1.015 (1.010-1.025) Urine Protein 30 H (Neg-Trace) mg/dL Urine Glucose (UA) Normal (Normal) mg/dL - Impressions ITS Impressions Chest X-Ray 06/20/19 10:07 IMPRESSION: 1. Worsening consolidation left upper lobe. An underlying mass in the left suprahilar region cannot be excluded. Recommend dedicated CT with contrast. 2. There are also worsening pleural effusions with mild interstitial edema suggestive of underlying congestive heart failure. D/ / 06/20/2019 11:30:13 Lor Mckoy MD / ashwini Interpreting Provider: oLr Mckoy MD Chest X-Ray 06/20/19 14:10 IMPRESSION: Central line tip in the distal SVC with no pneumothorax. Stable left upper lobe consolidation with bibasilar opacification and effusion. D/ / Thaddeus Montanez MD / Thaddeus Montanez MD Interpreting Provider: Thaddeus Montanez MD - Assessment and Plan (1) Septic shock Current Visit: Yes Status: Acute Assessment and plan: Pt presented to the emergency department for feeling fatigued and tired. Upon initial presentation patient had a leukocytosis. Chest x-ray showed Stable left upper lobe consolidation with bibasilar opacification and effusion. Patient was given 1 dose of vancomycin, 1 dose of levofloxacin, and 1 dose of Zosyn in the emergency room. Patient's blood pressure was 60/30. Patient was started on pressure trip with Levophed. Central line was placed for continuous monitoring. She will be admitted to ICU for further management, pressure drip, and broad spectrum antibiotics. Septic shock protocol has been activated. Sputum culture and blood culture ordered. Urine Legionella and strep antigen ordered. Lactate level ordered. We will continue to monitor. (2) Pneumonia Current Visit: Yes Status: Acute Assessment and plan: Mangement as above. Qualifiers: Pneumonia type: due to unspecified organism Laterality: left Lung locati on: upper lobe of lung Qualified Code(s): J18.1 - Lobar pneumonia, unspecified organism (3) Thrombosis of artery of right lower extremity Current Visit: Yes Status: Acute Assessment and plan: Present to the emergency department with complaint of discoloration of the right foot. Patient reports it has been going on for past 3 days. This morning patient's daughter noticed that her foot was purple. Foot is also swollen. Patient denied any pain. On exam right foot. were cold, nontender, and edematous. Vascular surgery is on consult. Recommended to start heparin. Heparin drip was started in ER. We will monitor heparin drip drip protocol. Patient is not a candidate for TPA for muscular surgery. Muscular surgery was contacted by ED and he recommended OSCAR and Doppler. (4) CHF exacerbation Current Visit: No Status: Acute Assessment and plan: Patient has a history of diastolic and systolic heart failure. Patient is status post coronary artery bypass graft in 2018. Chest x-ray showed pulmonary vascular congestion. We will continue to monitor. I's and O's. Daily weight. Will hold diuretics for now for the concern of septic shock. Qualifiers: Heart failure type: diastolic Qualified Code(s): I50.33 - Acute on chronic diastolic (congestive) heart failure (5) [id number] kidney injury Current Visit: Yes Status: Acute Assessment and plan: History of end-stage renal disease. Patient missed 2 cycles of dialysis. Creatinine of 6 today. Nephrology on consul today. Plan is to do dialysis today. Qualifiers: Acute renal failure type: unspecified Chronic kidney disease stage: on chronic dialysis Qualified Code(s): N17.9 - Acute kidney failure, unspecified; N18.9 - Chronic kidney disease, unspecified; Z99.2 - Dependence on renal dialysis (6) Elevated troponin Current Visit: Yes Status: Acute Assessment and plan: Patient has a history of coronary artery disease status post coronary artery bypass graft in 2019. Troponin is elevated at 0.58. We will continue to trend troponin. We will consider cardiology consult if troponin is still trending up. Patient is on heparin drip due to concern off right-sided arterial occlusion in the right lower extremity. (7) Diabetes mellitus Current Visit: Yes Status: Chronic Assessment and plan: Patient to see back at home. We will put patient on medium dose sliding scale insulin. Will put on 25 units of detemir at nighttime. Qualifiers: Diabetes mellitus type: type 2 Diabetes mellitus terminal manager insulin use: with alf use Diabetes mellitus complication status: with kidney complications Diabetes mellitus complication detail: with chronic kidney disease Chronic kidney disease stage: on chronic dialysis Qualified Code(s): E11.22 - Type 2 diabetes mellitus with diabetic chronic kidney disease; N18.6 - End stage renal disease; Z79.4 - senior care (current) use of insulin; Z99.2 - Dependence on renal dialysis (8) ESRD (end stage renal disease) on dialysis Current Visit: Yes Status: Chronic Assessment and plan: Patient has history of end-stage renal disease on dialysis. Patient has missed her last cycle of dialysis. Patient has hyperphosphatemia, and noted creatinine, and elevated bun, huponatremia and potassium is WNL. We will continue monitor. Nephrology on consult. Plan to do dialysis today. (9) CAD (coronary artery disease) Current Visit: No Status: Chronic Assessment and plan: We will continue patient's aspirin and Plavix, and statin. Qualifiers: Coronary Disease-Associated Artery/Lesion type: unspecified vessel or lesion type [place] vs. transplanted heart: [place] heart Associated angina: without angina Qualified Code(s): I25.10 - Atherosclerotic heart disease of [place] coronary artery without angina pectoris (10) Peripheral vascular disease Current Visit: No Status: Chronic Assessment and plan: History of peripheral muscular disease. Patient has left below-knee amputation in the past due to that. Continue pentoxifylline. Patient is on heparin drip for possible right arterial occlusion in the right foot. (11) COPD (chronic obstructive pulmonary disease) Current Visit: No Status: Chronic Assessment and plan: We will continue DuoNeb breathing treatment. Qualifiers: COPD type: chronic bronchitis Chronic bronchitis type: unspecified Qualified Code(s): J42 - Unspecified chronic bronchitis (12) DVT prophylaxis Current Visit: No Status: Acute Assessment and plan: Patient is on heparin drip. - Time Spent With Patient Total time spent is greater than 50% in coordination of care (as documented) at patient's floor/unit and/or counseling patient: 50 Greater than 35 minutes
[2019-06-20] MEDS ORDERED: *HR* OxyCODONE/APAP 5/325 TABLET PO PRN (16:23)
[2019-06-20] MEDS ORDERED: Vancomycin 1 EACH in 0.9 % Sodium Chloride 250 ML IVPB PRN (17:00)
[2019-06-20] MEDS: Insulin LISPRO 300 UNITS/3 ML VIAL SQ SCH ×2 (18:45→22:55)
[2019-06-20] MEDS ORDERED: Insulin DETEMIR 100 UNIT/ML X5UNITS SQ SCH (21:00)
[2019-06-20] MEDS: Ipratropium/Albuterol Neb 3 ML IH SCH (21:36)
[2019-06-20] MEDS: Piperacillin/Tazobactam 3.375 GM in 0.9 % Sodium Chloride Mini Bag 100 ML IVPB SCH (22:55)
[2019-06-21] MEDS: 0.9 % Sodium Chloride 1,000 ML IVC SCH (00:04)
[2019-06-21] MEDS ORDERED: Furosemide 40 MG/4 ML VIAL IVP ONE (00:22)
[2019-06-21] MEDS: *HR* Heparin 5,000 UNIT/ML VIAL IVP PRN ×2 (00:39→06:41)
[2019-06-21] MEDS: Norepinephrine 4 MG in D5% in Water 250 ML IVC SCH ×3 (01:19→11:23)
[2019-06-21] MEDS: Ipratropium/Albuterol Neb 3 ML IH SCH ×4 (03:23→21:36)
[2019-06-21 05:05] LABS: Nucleated Red Blood Cells 0.4 /100 WBC (0)
[2019-06-21 05:06] LABS: Basophils # 0.1 K/mcL (0.0-0.2); Basophils % 0.4 %; Eosinophils # 0.3 K/mcL (0.0-0.6); Eosinophils % 2.3 %; Hematocrit 48.2 % (35.3-44.9); Immature Granulocytes % 0.8 % (0-4); Immature Platelets 8.1 % (1.1-6.1); Lymphocytes % 6.9 %; Mean Corpuscular HGB Conc 31.1 g/dL (31.6-35.5); Mean Corpuscular Hemoglobin 28.8 pg (28.0-33.3); Mean Corpuscular Volume 92.5 fL (83.0-100.0); Mean Platelet Volume 12.1 fL (9.4-12.4); Monocytes # 0.9 K/mcL (0.0-1.3); Neutrophils # 11.8 K/mcL (1.6-8.9); Red Blood Count 5.21 M/mcL (3.82-4.97); Red Cell Distribution Width 18.4 % (11.5-14.5); Segmented Neutrophils % 83.6 %; White Blood Count 14.1 K/mcL (4.3-11.1)
[2019-06-21 05:08] LABS: Platelet Count 54 K/mcL (140-400)
[2019-06-21 05:26] LABS: Albumin 3.5 g/dL (3.5-5.7); Albumin/Globulin Ratio 1.7 (1.1-2.2); Bilirubin,Direct 2.7 mg/dL (0.0-0.2); Bilirubin,Indirect 1.3 mg/dL (0.0-1.2); Calcium 8.1 mg/dL (8.6-10.3); Globulin 2.1 g/dL (2.4-3.5); Magnesium 2.2 mg/dL (1.6-2.6); Phosphorous 6.2 mg/dL (2.7-4.5); Potassium 4.7 mEq/L (3.5-5.1); Total Protein 5.6 g/dL (6.4-8.9)
[2019-06-21 05:39] LABS: Thyroid Stimulating Hormone 15.735 mcIU/mL (0.340-5.600)
[2019-06-21] MEDS: Heparin 25,000 UNIT/250 ML D5W 25,000 UNIT/250 ML IV.SOLN IVC SCH (06:42)
--- NOTE | 2019-06-21 07:20 | Pulmonology Consult Note ---
<Tori Fuentes - Last Filed: 06/21/19 12:13> Date of Encounter: 06/21/19 Time of Encounter: 07:16 History of Present Illness Chief complaint: possible septic shock, likely due to pneumonia History of present illness: Soheila Reed is a 69 yo female who presented to ED yesterday by squad with daughter. Daughter reports patient has been increasingly tired and weak. She has past medical history of CAD, lt AKA, ESRD on dialysis, DMT2. Recently was april ated for pneumonia and finished last dose antibiotics 06/19. Also, yesterday, patient's right foot was purple. Past Med Surg Social Fam HX - Past Medical History Medical history: CHF, COPD, coronary artery disease, diabetes, hyperlipidemia, myocardial infarction, peripheral artery disease, renal disease, thyroid disease Additional medical history: Leg and foot surgery, amputation Left leg, MRSA on chest, Psychiatric history: anxiety, depression - Past Surgical History Surgical History: coronary bypass (CABG), orthopedic, other, vascular surgery (Status post left upper arm AV fistula) Additional surgical history: left AKA, right toe amputation - Social History Smoking Status: Former smoker Smokeless Tobacco Status: No Alcohol use: none Drug use: none - Family History Father Living Status: Hx Family Cancer: Yes (prostate, colon) Mother Adopted: No Hx Family Endocrine Disorder: Yes (Diabetes) Brother Hx Family Endocrine Disorder: Yes (Diabetes) Daughter Hx Family Neurologic Disorders: Yes (Aneurysm) Medications and Allergies Aspirin Enteric Coated [Aspirin EC] 81 mg PO DAILY 07/13/15 [History] Clopidogrel [Plavix] 75 mg PO DAILY 07/13/15 [History] Levothyroxine [Synthroid] 75 mcg PO QAM 07/13/15 [History] Pentoxifylline [TRENtal] 400 mg PO BID 07/13/15 [History] Tiotropium [Spiriva] 18 mcg IH DAILY 07/13/15 [History] ALPRAZolam [Xanax 1 MG Tablet] 1 mg PO BID PRN 09/11/16 [History] Atorvastatin Calcium [Lipitor] 20 mg PO HS 09/11/16 [History] Docusate [Colace] 100 mg PO DAILY PRN 09/11/16 [History] Gabapentin [Neurontin] 400 mg PO QPM 09/11/16 [History] Gabapentin [Neurontin] 800 mg PO QAM 09/11/16 [History] Sertraline [Zoloft] 100 mg PO DAILY 09/11/16 [History] Sitagliptin Phos/Metformin HCl [Janumet 50-1,000 mg Tablet] 1 each PO BID 09/11/16 [History] OxyCODONE/APAP 5/325 [Percocet 5/325 MG] 2 each PO Q6HR PRN #20 tablet 09/24/16 [Rx] Allergy/AdvReac Type Severity Reaction Status Date / Time gabapentin Allergy Seizure Verified 06/20/19 10:04 All Systems: The remainder of the systems were reviewed and are negative Physical Examination Vital Signs: Vital Signs, Last 4 Hours Temp Pulse Resp BP Pulse Ox 06/21/19 06:00 125 24 69/56 97 06/21/19 05:00 126 24 68/57 95 06/21/19 04:00 98.6 F 126 23 69/57 95 06/21/19 03:23 24 91 NEURO STATUS: RASS -1/-2 GENERAL: in significant distress SKIN: moist, warm EYES: nearly closed, turns gaze to voice, pupils equal, round, reactive ENT: moist mucosa NECK: could not hear any carotid bruits over breath sounds CV: difficult to hear over breath sounds; no murmurs, clicks or gallops heard RESPIRATORY: GI: distended, somewhat tender diffusely EXTREMITIES: cap refill <2sec, warm hands, right foot is cool and purple : Ventilator Settings Ventilator Settings: Not currently on vent. Patient does not want to be intubated. Results - Laboratory Findings CBC and BMP: 06/21/19 04:55 06/21/19 04:55 PT/INR, D-dimer PT 23.8 Seconds (9.4-12.1) H 06/20/19 10:31 Abnormal lab findings: Abnormal lab results WBC 14.1 K/mcL (4.3-11.1) H 06/21/19 04:55 RBC 5.21 M/mcL (3.82-4.97) H 06/21/19 04:55 Hct 48.2 % (35.3-44.9) H 06/21/19 04:55 MCHC 31.1 g/dL (31.6-35.5) L 06/21/19 04:55 RDW 18.4 % (11.5-14.5) H 06/21/19 04:55 Plt Count 54 K/mcL (140-400) L 06/21/19 04:55 Neutrophils # 11.8 K/mcL (1.6-8.9) H 06/21/19 04:55 Nucleated RBCs/100 WBC 0.4 /100 WBC (0) H 06/21/19 04:55 Platelet Estimate Decreased (Normal) L 06/20/19 10:31 Immature Plt Fraction 8.1 % (1.1-6.1) H 06/21/19 04:55 Polychromasia 1+ (Not Present) A 06/20/19 10:31 PT 23.8 Seconds (9.4-12.1) H 06/20/19 10:31 APTT 44.4 Seconds (26.0-36.0) H 06/20/19 10:31 Heparin Anti-Xa, Unfract 0.18 IU/mL (0.30-0.70) L 06/21/19 06:14 Sodium 130 mEq/L (136-145) L 06/21/19 04:55 Chloride 94 mEq/L (98-107) L 06/21/19 04:55 Carbon Dioxide 21 mEq/L (23-29) L 06/21/19 04:55 BUN 61 mg/dL (8-23) H 06/21/19 04:55 Creatinine 6.18 mg/dL (0.60-1.20) H 06/21/19 04:55 Est GFR ( Amer) 8 (> 60) L 06/21/19 04:55 Est GFR (Non-Af Amer) 7 (> 60) L 06/21/19 04:55 Glucose 260 mg/dL (70-105) H 06/21/19 04:55 POC Glucose 227 mg/dL (70-99) H 06/20/19 21:47 Calcium 8.1 mg/dL (8.6-10.3) L 06/21/19 04:55 Phosphorus 6.2 mg/dL (2.7-4.5) H 06/21/19 04:55 Total Bilirubin 4.0 mg/dL (0.3-1.0) H 06/21/19 04:55 Direct Bilirubin 2.7 mg/dL (0.0-0.2) H 06/21/19 04:55 Indirect Bilirubin 1.3 mg/dL (0.0-1.2) H 06/21/19 04:55 AST 103 Units/L (13-39) H 06/21/19 04:55 ALT 108 Units/L (7-52) H 06/21/19 04:55 Alkaline Phosphatase 115 Units/L (34-104) H 06/20/19 10:31 Troponin I 0.57 ng/mL (< 0.04) H* 06/20/19 21:33 B-Natriuretic Peptide 4807 pg/mL (Less than 100) H 06/21/19 04:55 Serum Total Protein 5.6 g/dL (6.4-8.9) L 06/21/19 04:55 Albumin 3.4 g/dL (3.5-5.7) L 06/20/19 10:31 Globulin 2.1 g/dL (2.4-3.5) L 06/21/19 04:55 TSH 15.735 mcIU/mL (0.340-5.600) H 06/21/19 04:55 Urine Clarity Turbid (Clear) A 06/20/19 11:24 Urine Protein 30 mg/dL (Neg-Trace) H 06/20/19 11:24 Urine Ketones Trace mg/dL (Negative) H 06/20/19 11:24 Urine Blood Large (Negative) H 06/20/19 11:24 Urine Bilirubin Moderate (Negative) H 06/20/19 11:24 Ur Leukocyte Esterase Large (Negative) H 06/20/19 11:24 Urine Microscopic RBC TNTC per hpf (0-3) H 06/20/19 11:24 Urine Microscopic WBC TNTC per hpf (0-3) H 06/20/19 11:24 Ur Squamous Epith Cells Many per lpf (None-Few) H 06/20/19 11:24 Urine Bacteria Many per hpf (None-Few) H 06/20/19 11:24 Ur Culture Indicated? YES (NO) A 06/20/19 11:24 Hep Bs Antibody < 3.10 mIU/mL (10.00-) L 06/20/19 10:31 - Microbiology Findings Microbiology Findings: Microbiology, Last 48 Hours 06/20/19 23:00 Sputum Culture - Preliminary Sputum 06/20/19 11:24 Urine Culture - Preliminary Urine,Catheterized (Straight) Culture is incubating. 06/20/19 10:31 Blood Culture - Preliminary Peripheral Venipuncture Culture is incubating and being continuously monit ored for growth. Final report to follow. 06/20/19 12:21 Blood Culture - Preliminary Peripheral Venipuncture Culture is incubating and being continuously monitored for growth. Final report to follow. - Clinical Findings Intake & Output: Intake & Output 06/20/19 06/20/19 06/21/19 15:59 23:59 07:59 Intake Total 1420 / 2234 814 / 2234 858 / 858 Output Total 150 / 150 15 / 15 Balance 1420 / 2084 664 / 2084 843 / 843 Weight 86.818 kg 88.7 kg Consult Discharge Plan - Plan Referrals: NONE,PCP [Primary Care Provider] - <Grayson Crocker W - Last Filed: 06/21/19 16:57> Date of Encounter: 06/21/19 Assessment and Plan (1) Septic shock Current Visit: Yes Status: Acute I examined this patient and my medical decision-making was reviewed with the Resident Physician. I agree with the documented findings, disposition and treatment plan as described except to the extent set forth below. We independently had [id number] contact with the patient I spent 45min of Critical Care time with this patient. It involved decision making of high complexity to assess, manipulate, and support vital organ system failure and/or to prevent further life threatening deterioration of the patient's condition. The time involved in the performance of separately reportable procedures was not counted toward critical care time. Patient seen and examined at bedside Labs, radiology, chart personally reviewed. Management was reviewed during multidisciplinary critical care rounds. SENIOR MANAGING DIRECTOR: Acute metabolic encephalopathy secondary to metabolic derangements from sepsis Pulm: Acute on chronic hypoxic hypercapnic respiratory failure secondary to hydrostatic pulmonary edema from heart failure complicated by sepsis and pneumonia is not fully excluded Cards: Shock secondary to sepsis requiring vasopressor she remains tachycardic. Right critical limb ischemia vascular surgery consulted GI: Continue to monitor Nutrition: Nothing by mouth for now Renal: Benefit from dialysis but she is hypotensive without axis nephrology consultation placed UOP Monitored, Cont to Trend sCr and monitor Electrolytes. ID: Septic shock likely secondary to ischemic limb cultures a been a day and she is on broad-spectrum antibiotics Heme/Onc: He is on heparin infusion for critical limb ischemia Endo: Glucose Monitored Integ/MSK: Skin Care per routine ICU Nursing Protocol to prevent ulcers. Lines: All lines examined without evidence of infection : Dispo: Monitor in ICU for critical illness CODE: I had several extensive conversations with the daughter at bedside and her Luis Felipe. I explained the situation that without any surgical intervention and with ischemic right limb that her prognosis was exceptionally poor as this was causing sepsis and shock and without intervention but no improvement was expected. Prior to discussing with the family members I had a extensive conversation with the vascular surgeon Dr. Sharma and tico to expressed his concern the patient is not an appropriate surgical candidate given her underlying medical comorbidities and poor health with a rapid decline as of late. In fact the patient had been on hospice prior to admission to the hospital. After several hours the daughter and the patient's met back with me and the nursing staff along with her own personal dye range operator and the decisio n was made to transition to full comfort measures. I explained that we would provide medications to ease his pain provide comfort to make the dying process compassionate and dignified these medications could have the unintended side effect of causing a hastening of but this would only be a side effect and not our primary intention. We will plan on monitoring in the ICU overnight wall comfort measures have been instituted patient can then be transferred to palliative care bed in the morning if she survives through the night. I did provide the family with emotional support and my condolences all questions were answered and they thanked me for my services. The patient is unable or incompetent to participate in giving a history and/or making treatment decisions. The discussion was necessary for determining treatment decision. This discussion took place in the ICU. The total meeting time was 30 minutes (2) Acute and chronic respiratory failure Current Visit: Yes Status: Acute Qualifiers: Respiratory failure complication: hypoxia Qualified Code(s): J96.21 - Acute and chronic respiratory failure with hypoxia (3) Pancytopenia Current Visit: No Status: Acute (4) Mild left ventricular systolic dysfunction Current Visit: No Status: Acute (5) Encephalopathy Current Visit: No Status: Acute (6) ESRD (end stage renal disease) Current Visit: No Status: Chronic (7) Peripheral vascular disease Current Visit: No Status: Chronic (8) History of left below knee amputation Current Visit: No Status: Acute (9) Thrombosis of artery of right lower extremity Current Visit: Yes Status: Acute (10) COPD (chronic obstructive pulmonary disease) Current Visit: No Status: Chronic Qualifiers: COPD type: chronic bronchitis Chronic bronchitis type: unspecified Qualified Code(s): J42 - Unspecified chronic bronchitis (11) CHF exacerbation Current Visit: No Status: Acute Qualifiers: Heart failure type: diastolic Qualified Code(s): I50.33 - Acute on chronic diastolic (congestive) heart failure History of Present Illness Consult date: 06/21/19 Requesting physician: Conrad Howard History of present illness: On presentation to the ED was noted to be hypotensive and tachycardia that central venous catheter was inserted and she was started on vasopressors noted to have critical limb ischemia however underlying complex medical history including heart failure ESRD COPD and peripheral vascular disease the main the surgical candidacy poor she was started on heparin infusion for critical limb ischemia and was not deemed a candidate for further surgical interventions or thrombectomies/thrombolysis. Upon my entry into the room patient was clearly decompensating increased work of breathing breathing 25-30 breaths a minute was delirious per daughter/POA at bedside Yadira her mother had been expressing wishes to not not go on fighting and she felt tired and weak she been battling poor health for the last 6 years with the last 2 years on dialysis. Is unable to participate in history gathering and history was obtained entirely from bedside nurse hospitalist medical record and family members at bedside including her daughter and Luis Felipe. All Systems: The remainder of the systems were reviewed and are negative Physical Examination Vital Signs: Vital Signs, Last 4 Hours Pulse 06/21/19 15:00 127 06/21/19 13:00 136 Results - Laboratory Findings CBC and BMP: 06/21/19 04:55 06/21/19 04:55 PT/INR, D-dimer PT 23.8 Seconds (9.4-12.1) H 06/20/19 10:31 Abnormal lab findings: Abnormal lab results WBC 14.1 K/mcL (4.3-11.1) H 06/21/19 04:55 RBC 5.21 M/mcL (3.82-4.97) H 06/21/19 04:55 Hct 48.2 % (35.3-44.9) H 06/21/19 04:55 MCHC 31.1 g/dL (31.6-35.5) L 06/21/19 04:55 RDW 18.4 % (11.5-14.5) H 06/21/19 04:55 Plt Count 54 K/mcL (140-400) L 06/21/19 04:55 Neutrophils # 11.8 K/mcL (1.6-8.9) H 06/21/19 04:55 Nucleated RBCs/100 WBC 0.4 /100 WBC (0) H 06/21/19 04:55 Platelet Estimate Decreased (Normal) L 06/20/19 10:31 Immature Plt Fraction 8.1 % (1.1-6.1) H 06/21/19 04:55 Polychromasia 1+ (Not Present) A 06/20/19 10:31 PT 23.8 Seconds (9.4-12.1) H 06/20/19 10:31 APTT 44.4 Seconds (26.0-36.0) H 06/20/19 10:31 Heparin Anti-Xa, Unfract 0.18 IU/mL (0.30-0.70) L 06/21/19 06:14 Sodium 130 mEq/L (136-145) L 06/21/19 04:55 Chloride 94 mEq/L (98-107) L 06/21/19 04:55 Carbon Dioxide 21 mEq/L (23-29) L 06/21/19 04:55 BUN 61 mg/dL (8-23) H 06/21/19 04:55 Creatinine 6.18 mg/dL (0.60-1.20) H 06/21/19 04:55 Est GFR ( Amer) 8 (> 60) L 06/21/19 04:55 Est GFR (Non-Af Amer) 7 (> 60) L 06/21/19 04:55 Glucose 260 mg/dL (70-105) H 06/21/19 04:55 POC Glucose 227 mg/dL (70-99) H 06/20/19 21:47 Calcium 8.1 mg/dL (8.6-10.3) L 06/21/19 04:55 Phosphorus 6.2 mg/dL (2.7-4.5) H 06/21/19 04:55 Total Bilirubin 4.0 mg/dL (0.3-1.0) H 06/21/19 04:55 Direct Bilirubin 2.7 mg/dL (0.0-0.2) H 06/21/19 04:55 Indirect Bilirubin 1.3 mg/dL (0.0-1.2) H 06/21/19 04:55 AST 103 Units/L (13-39) H 06/21/19 04:55 ALT 108 Units/L (7-52) H 06/21/19 04:55 Alkaline Phosphatase 115 Units/L (34-104) H 06/20/19 10:31 Troponin I 0.57 ng/mL (< 0.04) H* 06/20/19 21:33 B-Natriuretic Peptide 4807 pg/mL (Less than 100) H 06/21/19 04:55 Serum Total Protein 5.6 g/dL (6.4-8.9) L 06/21/19 04:55 Albumin 3.4 g/dL (3.5-5.7) L 06/20/19 10:31 Globulin 2.1 g/dL (2.4-3.5) L 06/21/19 04:55 TSH 15.735 mcIU/mL (0.340-5.600) H 06/21/19 04:55 Urine Clarity Turbid (Clear) A 06/20/19 11:24 Urine Protein 30 mg/dL (Neg-Trace) H 06/20/19 11:24 Urine Ketones Trace mg/dL (Negative) H 06/20/19 11:24 Urine Blood Large (Negative) H 06/20/19 11:24 Urine Bilirubin Moderate (Negative) H 06/20/19 11:24 Ur Leukocyte Esterase Large (Negative) H 06/20/19 11:24 Urine Microscopic RBC TNTC per hpf (0-3) H 06/20/19 11:24 Urine Microscopic WBC TNTC per hpf (0-3) H 06/20/19 11:24 Ur Squamous Epith Cells Many per lpf (None-Few) H 06/20/19 11:24 Urine Bacteria Many per hpf (None-Few) H 06/20/19 11:24 Ur Culture Indicated? YES (NO) A 06/20/19 11:24 Hep Bs Antibody < 3.10 mIU/mL (10.00-) L 06/20/19 10:31 - Microbiology Findings Microbiology Findings: Microbiology, Last 48 Hours 06/21/19 06:07 Legionella Antigen - Final Urine,[place] Streptococcus pneumoniae Antigen (M - Final 06/20/19 11:24 Urine Culture - Preliminary Urine,Catheterized (Straight) Gram Negative Blake 06/20/19 23:00 Sputum Culture - Preliminary Sputum 06/20/19 10:31 Blood Culture - Preliminary Peripheral Venipuncture Culture is incubating and being continuously monitored for growth. Final report to follow. 06/20/19 12:21 Blood Culture - Preliminary Peripheral Venipuncture Culture is incubating and being continuously monitored for growth. Final report to follow. - Diagnostic Findings Chest x-ray: report reviewed, image reviewed - Clinical Findings Intake & Output: Intake & Output 06/21/19 06/21/19 06/21/19 07:59 15:59 23:59 Intake Total 858 / 1112 254 / 1112 Output Total Balance 843 / 1087 244 / 1087 Weight 88.7 kg
[2019-06-21] MEDS: Insulin LISPRO 300 UNITS/3 ML VIAL SQ SCH ×3 (08:29→17:35)
[2019-06-21] MEDS ORDERED: Vancomycin 250 MG in 0.9 % Sodium Chloride Mini Bag 100 ML IVPB ONE (09:00)
--- NOTE | 2019-06-21 10:16 | Nephrology Consult Note ---
Date of Encounter: 06/21/19 Time of Encounter: 10:15 History of Present Illness - Reason for Consult Consult date: 06/21/19 end stage renal disease - Chief Complaint ESRD - History of Present Illness Ms. Reed is a 69 yo woman with a history of ESRD who presents for altered mental status and weakness. The patient does not respond to questions so the history is from the electronic chart and family at the bedside. Please refer to admission H&P for details. Patient receives dialysis under the directions of [facility] via a left upper arm fistula. Past Med Surg Social Fam HX - Past Medical History Medical history: CHF, COPD, coronary artery disease, diabetes, hyperlipidemia, myocardial infarction, peripheral artery disease, renal disease, thyroid disease Additional medical history: Leg and foot surgery, amputation Left leg, MRSA on chest, Psychiatric history: anxiety, depression - Past Surgical History Surgical History: coronary bypass (CABG), orthopedic, other, vascular surgery (Status post left upper arm AV fistula) Additional surgical history: left AKA, right toe amputation - Social History Smoking Status: Former smoker Smokeless Tobacco Status: No Alcohol use: none Drug use: none - Family History Father Living Status: Hx Family Cancer: Yes (prostate, colon) Mother Adopted: No Hx Family Endocrine Disorder: Yes (Diabetes) Brother Hx Family Endocrine Disorder: Yes (Diabetes) Daughter Hx Family Neurologic Disorders: Yes (Aneurysm) Medications and Allergies Aspirin Enteric Coated [Aspirin EC] 81 mg PO DAILY 07/13/15 [History] Clopidogrel [Plavix] 75 mg PO DAILY 07/13/15 [History] Levothyroxine [Synthroid] 75 mcg PO QAM 07/13/15 [History] Pentoxifylline [TRENtal] 400 mg PO BID 07/13/15 [History] Tiotropium [Spiriva] 18 mcg IH DAILY 07/13/15 [History] ALPRAZolam [Xanax 1 MG Tablet] 1 mg PO BID PRN 09/11/16 [History] Atorvastatin Calcium [Lipitor] 20 mg PO HS 09/11/16 [History] Docusate [Colace] 100 mg PO DAILY PRN 09/11/16 [History] Gabapentin [Neurontin] 400 mg PO QPM 09/11/16 [History] Gabapentin [Neurontin] 800 mg PO QAM 09/11/16 [History] Sertraline [Zoloft] 100 mg PO DAILY 09/11/16 [History] Sitagliptin Phos/Metformin HCl [Janumet 50-1,000 mg Tablet] 1 each PO BID 09/11/16 [History] OxyCODONE/APAP 5/325 [Percocet 5/325 MG] 2 each PO Q6HR PRN #20 tablet 09/24/16 [Rx] Allergy/AdvReac Type Severity Reaction Status Date / Time gabapentin Allergy Seizure Verified 06/20/19 10:04 Review of Systems ROS unobtainable: due to mental status Exam - Vital Signs Vital signs: Initial Vital Signs Temp Pulse Resp BP Pulse Ox 98.9 F 121 18 67/52 92 06/20/19 09:58 06/20/19 09:58 06/20/19 09:58 06/20/19 09:58 06/20/19 09:58 Vital Signs - Last 8 Hours Temp Pulse Resp BP Pulse Ox 06/21/19 09:00 126 24 70/59 95 06/21/19 08:00 126 20 69/57 96 06/21/19 07:00 98.0 F 126 26 71/60 96 06/21/19 06:00 125 24 69/56 97 06/21/19 05:00 126 24 68/57 95 06/21/19 04:00 98.6 F 126 23 69/57 95 06/21/19 03:23 24 91 06/21/19 03:00 126 19 68/57 89 Intake and Output 06/20/19 06/21/19 06/21/19 23:59 07:59 15:59 Intake Total 914 / 2334 858 / 858 Output Total 150 / 150 Balance 764 / 2184 843 / 833 - Intake: IV Fluids 914 / 2334 858 / 858 0.9 % Sodium Chloride 1,000 ML 560 / 560 @ 100 mls/hr IVC .Q10H [facility] Rx#: [id number] Heparin 25,000 UNIT/250 ML D5W 250 / 250 25,000 unit In 250 ml @ 14 UNIT /KG/HR 12.155 mls/hr IVC . [id number] [facility] Rx#:[id number] Levophed 4 MG In Dextrose 5% 254 / 254 508 / 508 250 ML @ 8 MCG/MIN 30.48 mls/hr IVC CONT [facility] Rx#:[id number] Flexbumin 25 gm In 100 ml @ 60 100 / 100 mls/hr IVPB ONCE PRN Rx#: [id number] Zosyn 3.375 GM In 0.9 % Sodium 100 / 100 Chloride (Mini-Bag +) 100 ML @ 25 mls/hr IVPB Q12H [facility] Rx#: [id number] Oral 0 / 0 Output: Catheter 150 / 150 15 / 25 Other: Weight 88.7 kg Blood Glucose* 227 Patient Weight 06/21/19 23:59 Weight 88.7 kg - General Appearance General appearance: well-developed, well-nourished, obese EENT: ATNC Neck: supple Respiratory: course breath sounds Additional Comments: tachycardic - Dialysis Access Dialysis Vascular Access: Arteriovenous Fistula (left upper arm fistula) thrill: Yes bruit: Yes Gastrointestinal: obese Integumentary: warm and dry Neurologic: confused Musculoskeletal: no cyanosis Additional Comments: Not agitated Results - Lab Results 06/21/19 04:55 06/21/19 04:55 Most recent lab results 06/21/19 04:55 Calcium 8.1 L Phosphorus 6.2 H Magnesium 2.2 Consult Discharge Plan - Plan Referrals: NONE,PCP [Primary Care Provider] -
[2019-06-21] MEDS: Aspirin Enteric Coated 81 MG Tablet PO SCH (10:17)
[2019-06-21 11:23] VITALS: BP 67/57
[2019-06-21] MEDS: Piperacillin/Tazobactam 3.375 GM in 0.9 % Sodium Chloride Mini Bag 100 ML IVPB SCH (11:24)
--- NOTE | 2019-06-21 11:28 | Vascular/Endovasc Consult Note ---
Date of Encounter: 06/21/19 Time of Encounter: 11:26 Assessment and Plan (1) ESRD (end stage renal disease) on dialysis Current Visit: Yes Status: Chronic (2) History of left below knee amputation Current Visit: No Status: Acute (3) Peripheral vascular disease Current Visit: No Status: Chronic The patient presents with hypotension and a discolored right foot. She denies any pain in her right calf and foot. The patient is tachycardic and hypotensive. She has missed hemodialysis for the past 2 sessions. She is not stable. I will not recommend any intervention on her right leg at this stage. I discussed with the family the need to optimize her medical care prior to pursuing any intervention on her right leg. They are aware that the patient is critically ill. I discussed my recommendations with the critical care attending. - History of Present Illness Consult date: 06/21/19 History of present illness: Ms. Reed is a 69 year old female seen for peripheral vascular disease involving the right lower extremity. The patient was admitted to the intensive care unit for blood pressure of 60 on pressors. The patient missed 2 hemodialysis sessions. She denies any pain in her right foot. Status post left lower extremity amputation. The patient denies any pain in her thigh or calf. She has discolored right forefoot. Past Med Surg Social Fam HX - Past Medical History Medical history: CHF, COPD, coronary artery disease, diabetes, hyperlipidemia, myocardial infarction, peripheral artery disease, renal disease, thyroid disease Additional medical history: Leg and foot surgery, amputation Left leg, MRSA on chest, Psychiatric history: anxiety, depression - Past Surgical History Surgical History: coronary bypass (CABG), orthopedic, other, vascular surgery (Status post left upper arm AV fistula) Additional surgical history: left AKA, right toe amputation - Social History Smoking Status: Former smoker Smokeless Tobacco Status: No Alcohol use: none Drug use: none - Family History Father Living Status: Hx Family Cancer: Yes (prostate, colon) Mother Adopted: No Hx Family Endocrine Disorder: Yes (Diabetes) Brother Hx Family Endocrine Disorder: Yes (Diabetes) Daughter Hx Family Neurologic Disorders: Yes (Aneurysm) Medications and Allergies Aspirin Enteric Coated [Aspirin EC] 81 mg PO DAILY 07/13/15 [History] Clopidogrel [Plavix] 75 mg PO DAILY 07/13/15 [History] Levothyroxine [Synthroid] 75 mcg PO QAM 07/13/15 [History] Pentoxifylline [TRENtal] 400 mg PO BID 07/13/15 [History] Tiotropium [Spiriva] 18 mcg IH DAILY 07/13/15 [History] ALPRAZolam [Xanax 1 MG Tablet] 1 mg PO BID PRN 09/11/16 [History] Atorvastatin Calcium [Lipitor] 20 mg PO HS 09/11/16 [History] Docusate [Colace] 100 mg PO DAILY PRN 09/11/16 [History] Gabapentin [Neurontin] 400 mg PO QPM 09/11/16 [History] Gabapentin [Neurontin] 800 mg PO QAM 09/11/16 [History] Sertraline [Zoloft] 100 mg PO DAILY 09/11/16 [History] Sitagliptin Phos/Metformin HCl [Janumet 50-1,000 mg Tablet] 1 each PO BID 09/11/16 [History] OxyCODONE/APAP 5/325 [Percocet 5/325 MG] 2 each PO Q6HR PRN #20 tablet 09/24/16 [Rx] Allergy/AdvReac Type Severity Reaction Status Date / Time gabapentin Allergy Seizure Verified 06/20/19 10:04 ROS unobtainable: due to mental status All Systems Review: The remainder of the systems were reviewed and are negative Exam Vital Signs, Last 4 Hours Pulse Resp BP Pulse Ox 06/21/19 11:25 26 96 06/21/19 11:00 130 26 67/57 96 06/21/19 10:00 131 26 65/55 98 06/21/19 09:00 126 24 70/59 95 06/21/19 08:00 126 20 69/57 96 General: Present: Other (Moribund) HEENT: Present: Atraumatic Neck: Present: Other Cardiac: Present: Irregular Rhythm, Other (Tachycardic at the rate of 120) Lungs: Present: Decreased breath sounds Neuro: Present: Alert and responsive Abdomen: Present: Non-tender, Hepatosplenomegaly Vascular: Present: Pulse, absent, Cyanosis, Edema Skin: Present: Other (Bluish discoloration right forefoot) Consult Discharge Plan - Plan Referrals: NONE,PCP [Primary Care Provider] -
[2019-06-21] MEDS ORDERED: *HR* LORazepam 2 MG/ML VIAL IVP ONE (12:49)
[2019-06-21] MEDS ORDERED: FentaNYL (PF) 1,000 MCG in 0.9 % Sodium Chloride 80 ML IVC SCH (13:00)
[2019-06-21] MEDS ORDERED: *HR* LORazepam 2 MG/ML VIAL IVP PRN (13:18)
[2019-06-21] MEDS: Atropine Sulfate 1% 40 DROP/2 ML BOTTLE SL PRN ×2 (19:23→23:36)
[2019-06-22] MEDS: Aspirin Enteric Coated 81 MG Tablet PO SCH (08:08)
[2019-06-22] MEDS ORDERED: *HR* OxyCODONE/APAP 5/325 TABLET PO PRN (09:32)
[2019-06-22] MEDS ORDERED: *HR* FentaNYL (PF) 100 MCG/2 ML VIAL IVP ONE (09:50)
--- NOTE | 2019-06-22 10:00 | Palliative - Consult Note ---
Date of Encounter: 06/22/19 Time of Encounter: 09:45 - Assessment and Plan (1) Dyspnea Current Visit: Yes Status: Acute Assessment and plan: Patient appears to be actively dying with resp distress. Periods of apnea, but then transitions to groaning irreg respiration. Will give extra Fentanyl 50mcg for respiratory distress and titrate drip as needed - currently infusing at 50mcg/hr Qualifiers: Dyspnea type: unspecified Qualified Code(s): R06.00 - Dyspnea, unspecified (2) Goals of care, counseling/discussion Current Visit: Yes Status: Acute Assessment and plan: Patient is actively dying - family at bedside and aware. Appears she may have minutes to hours to live. Drain Tiler called to bedside and conducted prayer with patient and family. Patient was a patient of [facility] prior to admission. (3) Ildye-yi-ycvdqmy kidney injury Current Visit: Yes Status: Acute Qualifiers: Acute renal failure type: unspecified Chronic kidney disease stage: on chronic dialysis Qualified Code(s): N17.9 - Acute kidney failure, unspecified; N18.9 - Chronic kidney disease, unspecified; Z99.2 - Dependence on renal dialysi s (4) ESRD (end stage renal disease) Current Visit: No Status: Chronic (5) History of left below knee amputation Current Visit: No Status: Acute (6) Septic shock Current Visit: Yes Status: Acute (7) Thrombosis of artery of right lower extremity Current Visit: Yes Status: Acute Palliative-CN HPI - Data of Consult Consult date: 06/22/19 Requesting Physician: Jhon Mckoy MD Primary Care Provider: PCP NONE - Consult Narrative History of present illness: Ms. Reed is a 69 year old female who arrived to ED with hypotension, and discoloration of right lower extremity. She was in critical condition with severe sepsis,, started on vasopressors, and had vascular consult for limb ishchemia. Was found not to be surgical candidate, however, was started on heparin. She was an end stage renal disease patient on dialysis, and was a patient of [facility]. She has many comorbid conditions, including PVD, DM, HTN, COPD. CHF coronary artery disease, myocardial infarction, thyroid disease. She was decompensating in ICU and family meeting was held. They decided to transition to DNR-Comfort care and withcare life prolonging therapy. Upon my visit, patients , daughter, and granddaughter are at bedside. Patient appears maciel in color, and having 15 sec periods of apnea, followed by deep irreg respirations. She appears restless as well and uncomfortable. Daughter at bedside states that her mother had a conversation a few weeks ago w ith her that she was dying and was at peace that she would pass soon. Discussed with family she is actively dying, may pass away soon. Family emotional at bedside, klystrom tube tester is present. CC: Jhon Mckoy MD - Time Spent with Patient Time: Total time spent is greater than 50% in coordination of care (as documented) at patient's floor/unit and/or counseling patient: Past Med Surg Social Fam HX - Past Medical History Medical history: CHF, COPD, coronary artery disease, diabetes, hyperlipidemia, myocardial infarction, peripheral artery disease, renal disease, thyroid disease Additional medical history: Leg and foot surgery, amputation Left leg, MRSA on chest, Psychiatric history: anxiety, depression - Past Surgical History Surgical History: coronary bypass (CABG), orthopedic, other, vascular surgery (Status post left upper arm AV fistula) Additional surgical history: left AKA, right toe amputation - Social History Smoking Status: Former smoker Smokeless Tobacco Status: No Alcohol use: none Drug use: none - Family History Father Living Status: Hx Family Cancer: Yes (prostate, colon) Mother Adopted: No Hx Family Endocrine Disorder: Yes (Diabetes) Brother Hx Family Endocrine Disorder: Yes (Diabetes) Daughter Hx Family Neurologic Disorders: Yes (Aneurysm) Medications and Allergies Aspirin Enteric Coated [Aspirin EC] 81 mg PO DAILY 07/13/15 [History] Atorvastatin Calcium [Lipitor] 20 mg PO HS 09/11/16 [History] ALPRAZolam [Xanax 0.5 MG Tablet] 0.5 mg PO BID 06/21/19 [History] Albuterol Sulfate [Proair Hfa] 2 puff IH Q4H PRN 06/21/19 [History] Bumetanide 2 mg PO BID 06/21/19 [History] Cyclobenzaprine [Flexeril] 10 mg PO TID PRN 06/21/19 [History] Ipratropium/Albuterol Neb [Duoneb] 3 ml IH Q6HR 06/21/19 [History] Levothyroxine Sodium 75 mcg PO QAM 06/21/19 [History] Ondansetron HCl [Zofran] 4 mg PO BID PRN 06/21/19 [History] OxyCODONE Immed Rel [Roxicodone 10 MG] 10 mg PO Q6H PRN 06/21/19 [History] Polyethylene Glycol 3350 [MiraLAX] 17 gm PO DAILY PRN 06/21/19 [History] Pramipexole [Mirapex] 0.25 mg PO HS 06/21/19 [History] hydrOXYzine HCl [Hydroxyzine HCl] 25 mg PO QAM 06/21/19 [History] Allergy/AdvReac Type Severity Reaction Status Date / Time gabapentin Allergy Seizure Verified 06/20/19 10:04 ROS unobtainable: due to mental status Palliative Care-Exam - Constitutional Vitals: Temp Pulse Resp BP Pulse Ox 102.7 F H 120 26 67/57 92 06/22/19 06:58 06/22/19 06:58 06/22/19 06:58 06/21/19 12:00 06/21/19 12:00 General appearance: Present: morbidly obese, severe distress - Head Head Exam: Present: normal inspection, normocephalic - Eye Eye exam: Present: normal appearance - Respiratory Respiratory exam: Present: accessory muscle use, prolonged expiratory phase, respiratory distress Additional comments: 15 second periods of apnea - Cardiovascular Cardiovascular exam: Present: irregular rhythm, tachycardia - GI/Abdominal Exam GI/Abdominal exam: Present: distended, soft - Extremities Exam Additional comments: Old AKA left. Right leg purplish discoloration - Neurological Exam Additional comments: Unresponsive - eyes open periodically. - Skin Skin exam: Present: dry, warm Additional comments: Cyanosis to bilateral hands, face Internal Medicine - CN: Reslt - Labs CBC & Chem 7: 06/21/19 04:55 06/21/19 04:55 - ABG Interpretation ABG results: PT/INR, D-dimer PT 23.8 Seconds (9.4-12.1) H 06/20/19 10:31 Consult Discharge Plan - Plan Referrals: NONE,PCP [Primary Care Provider] - Palliative Quality Palliative Quality: Screen for Code Status: Yes, Screen for Goals of Care: Yes, Screen for Pain: Yes, If Pain Regimen Started, Initiate Bowel Regimen: NA, Screen for Nausea/Vomitting: Yes Code Status: 06/20/19 14:54 Resuscitation Status: Active [RES] Routine Comment: Resuscitation Status: [id number] 06/21/19 12:46 Resuscitation Status: Active [RES] Routine Comment: Resuscitation Status: DNR-Comfort Care
--- NOTE | 2019-06-22 12:32 | Event Note ---
Date of Encounter: 06/22/19 Time of Encounter: 12:26 - Nephrology Event Note This is a 69 y/o F with history of ESRD who presented with AMS and weakness. Nephrology consulted due ESRD. Consideration was made for Palliative ultrafiltration as needed. Patient was transitioned to DNR-Comfort Care overnight. Palliative Care on board. Noted patient is actively dying and could pass within hours. Given poor prognosis and transition to hospice care, no further intervention will be pursued at this time per family request. Discussed with Stacy Flynn of palliative care.
--- NOTE | 2019-06-22 13:45 | Electrocardiograph Report ---
[address] [place], [place] [address] Test Date: 2019-06-20 Pat Name: Soheila Reed Department: EXAM2 Room: 2A45 Gender: F Hand Shoes Sewer: : 1950 Requested By: Chikis Lorenzo Order Number: [id number] Reading MD: Jonathan Irwin Measurements Intervals [place] Rate: 122 P: -54 SC: 88 QRS: 102 QRSD: 117 T: 204 QT: 319 QTc: 455 Interpretive Statements Sinus or ectopic atrial tachycardia Repol abnrm suggests ischemia, anterolateral Electronically Signed On 06-22-2019 13:43:45 EDT by Jonathan Irwin
[2019-06-22] MEDS ORDERED: levoFLOXacin 500 MG/100 ML 500 MG/100 ML BAG IVPB SCH (17:00)
--- NOTE | 2019-06-22 17:49 | Death Note ---
Discharge Sum: Summary - Date and Time Date of admission: 06/20/19 15:59 Date of : 06/22/19 Time of : 13:19 - Additional Data Confirmation of as documented by pronouncing clinician: no pulse Family: at bedside Additional persons at bedside: amina, social insurance adviser Attending/PCP notified?: Yes (Dr. Mckoy Notified by Nurse) Attending physician: Jhon Mckoy MD Was code activated?: No Autopsy requested?: No rules examiner notified?: No Organ bank notified?: No Advance directives: Yes Hospice patient?: No Discharge Sum: Diag - PCOD Probable Cause of : Septic shock Discharge Sum: Prov - Provider Primary care physician: PCP NONE Admitting clinician: Jhon Mckoy Attending physician on admission: Jhon Mckoy Consults: 06/20/19 10:46 Consult to Dialysis [CONS] Stat 06/20/19 10:56 Consult to Vascular Surgery [CONS] Stat Consulting Provider: Vascular Surgery [facility] Reason for Consult: right leg discoloration, no pedal pulse Call Completed: Yes 06/20/19 11:44 Consult to Nephrology [CONS] Stat Consulting Provider: [facility] [place]/[facility] Reason for Consult: known Pt Call Completed: Yes 06/20/19 13:45 Consult to Dialysis [CONS] ONCE 06/20/19 17:23 Consult to Pulmonology [CONS] Stat Consulting Provider: Pulm Crit Care & Sleep [facility] Reason for Consult: Patient and possible septic sock likely due to pneumonia. Patient's is on vasopressor drip Call Completed: No 06/22/19 06:38 Consult to Palliative Care [CONS] Routine Comment: Consulting Provider: Palliative Care [place] Reason for Consult: Patient was sent from ICU and during report we were advised patient would be GIP. Call Completed: No 06/22/19 09:10 Consult to Nurse Navigator [CONS] Routine Comment: hd, pn, chf
== END 2019-06-22 14:19 | disposition expired | DRG 871 ==
LOC: EMEROOARM 09:44 → SUATTDRO 15:59 → ICNU 15:59 → 2ANU 06-22 05:32
PROVIDERS: ADMIT Student in an Organized Health Care Education/Training Program; ATTEND Family Medicine